=== PATIENT | female | born 1960 | race Caucasian/White ===

== ENCOUNTER → 2020-01-20 10:17 | Outpatient (CLI) | payer BC, SELFPAY ==
[2020-01-20 10:54] LABS: Add Manual Diff / Slide Review NO; Basophils Absolute Auto 0 /uL (0-100); Basophils Percent Auto 0.4 % (0-2); Eosinophils Absolute Auto 0 /uL (0-450); Eosinophils Percent Auto 0.7 % (2-4); Hematocrit 43.9 % (36-46); Hemoglobin 14.7 g/dL (12.0-16.0); Lymphocytes Absolute Auto 1000 /uL (1100-4500); Lymphocytes Percent Auto 33.5 % (25-40); Mean Corpuscular HGB Conc 33.5 % (30-36); Mean Corpuscular Hemoglobin 31.8 PG (26-34); Mean Corpuscular Volume 94.7 fL (80-100); Monocytes Absolute Auto 200 /uL (0-900); Monocytes Percent Auto 6.3 % (3-14); Neutrophils Absolute Auto 1800 /uL (1500-7000); Neutrophils Percent Auto 59.1 % (50-75); Platelet Count 174 X10^3/uL (150-400); Red Blood Cell Count 4.63 X10^6/uL (4.0-5.2); Red Cell Distribution Width 14.1 % (11.6-14.8)
[2020-01-20 11:31] LABS: Alanine Aminotransferase 29 IU/L (<35); Albumin 4.3 g/dL (3.5-5.0); Albumin Globulin Ratio 1.7 (1.0-2.8); Alkaline Phosphatase 106 U/L (38-126); Aspartate Aminotransferase 34 IU/L (14-36); BUN Creatinine Ratio 17.5 (6-22); Bilirubin Total 1.1 mg/dL (0.2-1.3); Blood Urea Nitrogen 14 mg/dL (7-17); Calcium 9.4 mg/dL (8.4-10.2); Carbon Dioxide 31 mmol/L (22-32); Chloride 101 mmol/L (98-107); Cholesterol 185 mg/dL (140-199); Estimated Glomerular Filt Rate > 60.0 mL/min (>60); Globulin 2.5 g/dL (1.7-4.1); Glucose 78 mg/dL (70-100); HDL Cholesterol 100 mg/dL (40-60); HEMOLYSIS < 15 (0-50); LDL Cholesterol Calculated 73 mg/dL (<100); Potassium 4.3 mmol/L (3.4-5.1); Sodium 136 mmol/L (137-145); Total Protein 6.8 g/dL (6.3-8.2); Triglycerides 61 mg/dL (35-150)
[2020-01-20 11:48] LABS: Free T3, Triiodothyronine Free 5.93 pg/mL (2.77-5.27)
[2020-01-21 06:36] LABS: Thyroid Peroxidase Antibodies 19 IU/mL (0-34)
== END ==
PROVIDERS: PCP Registered Nurse; Referring Provider Registered Nurse; Visit Provider Registered Nurse
DX: E06.3 Autoimmune thyroiditis (principal); Z86.2 Personal history of diseases of the blood and blood-forming organs and certain disorders involving the immune mechanism; Z82.49 Family history of ischemic heart disease and other diseases of the circulatory system
CPT/HCPCS: 36415; 80053; 80061; 84443; 84481; 85025; 86376

== ENCOUNTER → 2020-03-12 09:09 | Outpatient (CLI) | payer BC, SELFPAY ==
--- NOTE | 2020-03-12 09:10 | DI.MG.S_ITS ---
BILATERAL DIGITAL SCREENING MAMMOGRAM 3D/2D WITH CAD: 03/12/2020 CLINICAL: Routine screening. Family history of breast cancer. Comparison is made to exams dated: 02/26/2019 mammogram, 02/19/2018 mammogram, and 02/06/2017 mammogram - [facility]. There are scattered fibroglandular elements in both breasts. Current study was also evaluated with a Computer Aided Detection (CAD) system. There are benign post operative findings in the right breast. No significant masses, calcifications, or other findings are seen in either breast. There has been no significant interval change. IMPRESSION: BENIGN There is no mammographic evidence of malignancy. A 1 year screening mammogram is recommended. This exam was interpreted at Station ID: [id number]. NOTE: For mammograms, a report in lay terms will be sent to the patient. Approximately 15% of breast malignancies will not be visualized mammographically. In the management of a palpable breast mass, a negative mammogram must not discourage biopsy of a clinically suspicious lesion. Electronically Signed By: Marvin parra/malu:03/14/2020 07:29:27 letter sent: Normal Exam ACR BI-RADS Category 2: Benign Finding(s) 3342F
== END ==
PROVIDERS: PCP Registered Nurse; Referring Provider Registered Nurse; Visit Provider Registered Nurse
DX: Z12.31 Encounter for screening mammogram for malignant neoplasm of breast (principal); Z80.3 Family history of malignant neoplasm of breast
CPT/HCPCS: 77063; 77067

== ENCOUNTER → 2020-04-15 16:03 | Outpatient (CLI) | payer BC, SELFPAY ==
[2020-04-15 17:44] LABS: Free T3, Triiodothyronine Free 2.99 pg/mL (2.77-5.27)
[2020-04-15 17:58] LABS: TSH w/ Reflex to FT4 0.59 uIU/mL (0.47-4.68)
[2020-04-17 07:10] LABS: Thyroid Peroxidase Antibodies 25 IU/mL (0-34)
== END ==
PROVIDERS: PCP Registered Nurse; Referring Provider Registered Nurse; Visit Provider Registered Nurse
DX: E06.3 Autoimmune thyroiditis (principal)
CPT/HCPCS: 36415; 84443; 84481; 86376

== ENCOUNTER → 2020-04-19 11:56 | Outpatient (CLI) | payer BC, SELFPAY ==
[2020-04-19 12:34] LABS: T4 Total Thyroxine 6.39 ug/dL (5.5-11.0)
== END ==
PROVIDERS: PCP Registered Nurse; Visit Provider Registered Nurse
DX: E03.9 Hypothyroidism, unspecified (principal)
CPT/HCPCS: 84436

== ENCOUNTER 2020-05-07 21:31 | Emergency (ER) | payer BC, SELFPAY ==
[2020-05-07 21:38] VITALS: BP 179/85; PULSE 58; RESP 18; TEMP 36.6; O2SAT 100; BMI 21.2
--- NOTE | 2020-05-07 22:46 | PC.NURSE ---
Pt reports pain increased over the day. Cannot remember a specific injury occurring. Unable to sleep due to the pain. Reports similar episodes in the past, but they have always subsided with rest.
--- NOTE | 2020-05-07 23:17 | ED_ITS ---
HPI - Back Pain/Injury General Chief Complaint: Back Pain/Injury Stated Complaint: lower back pain Time Seen by Provider: 05/07/20 22:28 Source: patient Mode of arrival: Ambulatory Limitations: no limitations History of Present Illness HPI Narrative: Patient is a 59-year-old female here for evaluation of bilateral with left being greater than right lower back pain. She states that soon after she woke up this morning she started having pain in her left lower back that has worsened as the day went on. She states that it is pain on the left side that is radiating to the right. No loss of bowel or bladder. No urinary symptoms. No constipation diarrhea. No vaginal bleeding. States she has had back pain like this in the past but has only lasted a few hours and then went away. States that today's back pain is worsened has been. No fevers. No recent travel. Has not tried anything for symptoms prior to arrival. Related Data Home Medications Medication Instructions Recorded Confirmed metoprolol succinate 25 mg 25 mg PO DAILY tab 04/20/20 04/29/20 tablet,extended release 24 hr Previous Rx's Medication Instructions Recorded thyroid (pork) 60 mg tablet 60 mg PO DAILY #30 tab 04/18/20 cyclobenzaprine 10 mg PO TID PRN #10 tab 05/07/20 tramadol [Ultram] 50 mg PO Q6H PRN #10 tab 05/07/20 Allergies Allergy/AdvReac Type Severity Reaction Status Date / Time losartan Allergy numbness Verified 05/07/20 21:38 and tingling of entire body Review of Systems Constitutional Constitutional: Denies chills, Denies fatigue, Denies headache(s) and Denies weakness ENT Ears, Nose, Mouth, and Throat: Denies vertigo, Denies dizziness and Denies headache(s) Cardiovascular Cardiovascular: Denies chest pain and Denies dyspnea Respiratory Respiratory: Denies dyspnea Gastrointestinal Gastrointestinal: Denies abdominal pain, Denies nausea and Denies vomiting Genitourinary Genitourinary: Denies dysuria, Denies urinary hesitancy, Denies urinary incontinence and Denies urinary urgency Genitourinary: Denies dysuria, Denies urinary incontinence, Denies urinary hesitancy and Denies urinary urgency Musculoskeletal Musculoskeletal: Denies arthralgias, Reports back pain, Denies myalgias and Denies tingling Integumentary/Breasts Skin/Breast: Denies lesions and Denies rash Neurologic Neurologic: Denies vertigo, Denies dizziness, Denies headache(s), Denies tingling and Denies weakness Endocrine Endocrine: Denies fatigue Hematologic/Lymphatic Hematologic/Lymphatic: Denies easy bleeding and Denies easy bruising Allergic/Immunologic Allergic/Immunologic: Denies urticaria Patient History Medical History Elevated BP without diagnosis of hypertension (Acute) Family history of heart disease (Acute) Juan Manuel's disease (Chronic) History of anemia (Acute) Hypothyroidism (Chronic ~2018) Rosacea (Chronic ~2018) Surgical History Anesthesia (Resolved) History of breast surgery (Resolved ~2007) Family History Father History of heart attack Social History Smoking Status: Never smoker Smoking Status: Never smoker Substance Use Type: does not use Exam Initial Vital Signs Initial Vital Signs: Vital Signs Temperature 97.9 F 05/07/20 21:38 Pulse Rate 58 L 05/07/20 21:38 Respiratory Rate 18 05/07/20 21:38 Blood Pressure 179/85 H 05/07/20 21:38 Pulse Oximetry 100 05/07/20 21:38 Const General: cooperative, healthy appearing, comfortable and well developed Limitations: mental status not altered HENMT Head: normal to inspection and normocephalic Resp Effort & Inspection: normal respiratory effort Cardio Rate: regular rate Back/Spine/Pelvis Thoracic/Lumbar Spine: No thoracic spinal tenderness and No lumbar spinal tenderness Skin Lesions: no lesions Rashes: no rashes Neuro General: patient alert, patient awake and patient oriented x3 Speech: speech normal Extrem General: capillary refill normal Psych Appearance: grossly normal and well kempt Course Orders Ordered: Discontinued Medications Cyclobenzaprine HCl (Flexeril 10 Mg Prepack) 1 bottle MISC SEEINSTR ONE Stop: 05/07/20 23:19 Last Admin: 05/07/20 23:27 Dose: 1 bottle Documented by: THANG Ketorolac Tromethamine (Toradol) 30 mg IM NOW ONE Stop: 05/07/20 23:18 Last Admin: 05/07/20 23:26 Dose: 30 mg Documented by: THANG Morphine Sulfate (Morphine) 4 mg IM NOW ONE Stop: 05/07/20 23:18 Last Admin: 05/07/20 23:27 Dose: 4 mg Documented by: THANG Tramadol HCl (Ultram 50mg Prepack) 1 bottle MISC SEEINSTR ONE Stop: 05/07/20 23:19 Last Admin: 05/07/20 23:27 Dose: 1 bottle Documented by: THANG Vital Signs Vital signs: Vital Signs - 8 hr 05/07/20 21:38 05/07/20 23:39 Temperature 97.9 F Pulse Rate 58 L 60 Respiratory Rate 18 17 Blood Pressure 179/85 H 187/94 H Pulse Oximetry 100 97 MDM - Back Pain/Injury MDM Narrative Medical decision making narrative: Patient without any specific trauma. States that lying in bed she does not have any tenderness to palpation is when she starts to move. I have low suspicion for cauda equina. She does not have any belly pain. Low suspicion for AAA. Low suspicion for other potential etiologies such is kidney stones and pyelonephritis. Will treat with medicines for now. We can hold on radiologic studies. Patient was given return precautions and follow-up instructions the primary specially if her symptoms do not improve. She expressed understanding and agreement. Discharge Plan Departure Patient Disposition: Home Clinical Impression: Acute low back pain Discharge Date/Time: 05/07/20 23:42 Instructions: DI for Low Back Pain, Exercise May Reduce Risk of Low Back Pain Activity Restrictions/Additional Instructions: I do recommend you contact your primary provider for a follow-up especially if your symptoms are not improving on the medicines from the ER. Return to the emergency department for any new or worsening symptoms. 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
[2020-05-07] MEDS: KETOROLAC 60 MG/2 ML VIAL 30 MG IM (23:26)
[2020-05-07] MEDS: CYCLOBENZAPRINE 10 MG PREPACK 1 BOTTLE MISC (23:27)
[2020-05-07] MEDS: TRAMADOL 50 MG PREPACK 1 BOTTLE MISC (23:27)
[2020-05-07] MEDS: MORPHINE 4 MG/ML INJ IM (23:27)
[2020-05-07 23:39] VITALS: BP 187/94; PULSE 60; RESP 17; O2SAT 97
== END 2020-05-07 23:42 | disposition home or self-care (01) ==
PROVIDERS: Emergency Provider Emergency Medicine; PCP Registered Nurse
DX: M54.5 Low back pain (principal)
CPT/HCPCS: 96372; 99283; J1885; J2270

== ENCOUNTER → 2020-07-13 11:25 | Outpatient (CLI) | payer OTHER, SELFPAY ==
[2020-07-13 12:09] LABS: Hemoglobin A1C% w Est Avg Glu 5.3 % (4.0-6.0)
[2020-07-13 12:25] LABS: Alanine Aminotransferase 21 IU/L (<35); Albumin 4.2 g/dL (3.5-5.0); Albumin Globulin Ratio 1.7 (1.0-2.8); Alkaline Phosphatase 98 U/L (38-126); Aspartate Aminotransferase 29 IU/L (14-36); BUN Creatinine Ratio 16.7 (6-22); Bilirubin Total 0.6 mg/dL (0.2-1.3); Blood Urea Nitrogen 13 mg/dL (7-17); Calcium 8.7 mg/dL (8.4-10.2); Carbon Dioxide 30 mmol/L (22-32); Chloride 101 mmol/L (98-107); Estimated Glomerular Filt Rate > 60.0 mL/min (>60); Globulin 2.5 g/dL (1.7-4.1); Glucose 88 mg/dL (70-100); HEMOLYSIS < 15 (0-50); Potassium 4.3 mmol/L (3.4-5.1); Sodium 134 mmol/L (137-145); Total Protein 6.7 g/dL (6.3-8.2)
[2020-07-13 13:09] LABS: Vitamin B12 934 pg/mL (239-931)
[2020-07-14 21:26] LABS: Deamidated Gliadin Ab IgA 7 units (0-19); Deamidated Gliadin Ab IgG 3 units (0-19); Immunoglobulin A,Qn 161 mg/dL (87-352); t-Transglutaminase IgA <2 U/mL (0-3)
[2020-07-15 09:36] LABS: Vitamin B6 27.5 ug/L (2.0-32.8)
[2020-07-15 13:09] LABS: Albumin 3.8 g/dL (2.9-4.4); Alpha 1 Globulin 0.2 g/dL (0.0-0.4); Alpha 2 Globulin 0.7 g/dL (0.4-1.0); Gamma Globulin 0.8 g/dL (0.4-1.8); Protein, Total 6.5 g/dL (6.0-8.5)
[2020-07-15 22:36] LABS: Methylmalonic Acid,Serum 100 nmol/L (0-378)
== END ==
PROVIDERS: PCP Registered Nurse; Referring Provider Psychiatry & Neurology Neuromuscular Medicine; Visit Provider Psychiatry & Neurology Neuromuscular Medicine
DX: R20.0 Anesthesia of skin (principal); R20.2 Paresthesia of skin; I10 Essential (primary) hypertension
CPT/HCPCS: 36415; 80053; 82607; 82784; 83036; 83516; 83921; 84155; 84165; 84207

== ENCOUNTER → 2020-07-19 07:16 | Outpatient (CLI) | payer OTHER, SELFPAY ==
[2020-07-19 08:57] LABS: Free T3, Triiodothyronine Free 3.06 pg/mL (2.77-5.27)
[2020-07-19 09:12] LABS: Thyroid Stimulating Hormone 2.54 uIU/mL (0.47-4.68)
== END ==
PROVIDERS: PCP Registered Nurse; Referring Provider Naturopath; Visit Provider Naturopath
DX: E03.9 Hypothyroidism, unspecified (principal)
CPT/HCPCS: 36415; 84443; 84481

== ENCOUNTER → 2020-10-17 09:46 | Outpatient (CLI) | payer OTHER, SELFPAY ==
[2020-10-17 11:13] LABS: Alanine Aminotransferase 23 IU/L (<35); Albumin 3.7 g/dL (3.5-5.0); Albumin Globulin Ratio 1.4 (1.0-2.8); Alkaline Phosphatase 82 U/L (38-126); Aspartate Aminotransferase 34 IU/L (14-36); BUN Creatinine Ratio 15.9 (6-22); Bilirubin Total 0.3 mg/dL (0.2-1.3); Blood Urea Nitrogen 13 mg/dL (7-17); Calcium 8.7 mg/dL (8.4-10.2); Carbon Dioxide 27 mmol/L (22-32); Chloride 106 mmol/L (98-107); Cholesterol 149 mg/dL (140-199); Estimated Glomerular Filt Rate > 60.0 mL/min (>60); Globulin 2.6 g/dL (1.7-4.1); Glucose 86 mg/dL (70-100); HDL Cholesterol 59 mg/dL (40-60); HEMOLYSIS < 15 (0-50); LDL Cholesterol Calculated 77 mg/dL (<100); Potassium 4.3 mmol/L (3.4-5.1); Sodium 138 mmol/L (137-145); Total Protein 6.3 g/dL (6.3-8.2); Triglycerides 65 mg/dL (35-150)
== END ==
PROVIDERS: PCP Registered Nurse; Referring Provider Registered Nurse; Visit Provider Registered Nurse
DX: I10 Essential (primary) hypertension (principal); Z82.49 Family history of ischemic heart disease and other diseases of the circulatory system
CPT/HCPCS: 36415; 80053; 80061

== ENCOUNTER → 2020-10-24 12:42 | Outpatient (CLI) | payer OTHER, SELFPAY ==
[2020-10-24 13:29] LABS: Add Manual Diff / Slide Review NO; Basophils Absolute Auto 0 /uL (0-100); Basophils Percent Auto 0.8 % (0-2); Eosinophils Absolute Auto 0 /uL (0-450); Hematocrit 35.6 % (36-46); Hemoglobin 11.8 g/dL (12.0-16.0); Lymphocytes Absolute Auto 1000 /uL (1100-4500); Lymphocytes Percent Auto 31.7 % (25-40); Mean Corpuscular HGB Conc 33.1 % (30-36); Mean Corpuscular Hemoglobin 29.9 PG (26-34); Mean Corpuscular Volume 90.3 fL (80-100); Monocytes Absolute Auto 200 /uL (0-900); Monocytes Percent Auto 5.6 % (3-14); Neutrophils Absolute Auto 2000 /uL (1500-7000); Neutrophils Percent Auto 60.9 % (50-75); Platelet Count 190 X10^3/uL (150-400); Red Blood Cell Count 3.94 X10^6/uL (4.0-5.2); Red Cell Distribution Width 16.5 % (11.6-14.8); White Blood Cell Count 3.2 X10^3/uL (4.5-11.0)
[2020-10-24 14:17] LABS: Magnesium 2.3 mg/dL (1.6-2.3)
[2020-10-24 14:32] LABS: Free T3, Triiodothyronine Free 2.83 pg/mL (2.77-5.27)
[2020-10-24 14:44] LABS: Cortisol Random 7.41 ug/dL
[2020-10-24 14:46] LABS: Thyroid Stimulating Hormone 1.68 uIU/mL (0.47-4.68)
[2020-10-24 14:49] LABS: Ferritin 5 ng/mL (11-264)
[2020-10-24 15:19] LABS: Folate > 20.0 ng/mL (2.76-20.0); Vitamin B12 859 pg/mL (239-931)
[2020-10-25 06:15] LABS: Thyroid Peroxidase Antibodies 44 IU/mL (0-34)
== END ==
PROVIDERS: PCP Registered Nurse; Referring Provider Naturopath; Visit Provider Naturopath
DX: E03.9 Hypothyroidism, unspecified (principal); R53.83 Other fatigue; D64.9 Anemia, unspecified
CPT/HCPCS: 36415; 82533; 82542; 82607; 82627; 82728; 82746; 83735; 84439; 84443; 84481; 85025; 86376

== ENCOUNTER → 2020-11-04 11:28 | Outpatient (CLI) | payer OTHER, SELFPAY ==
[2020-11-04 13:16] LABS: Add Manual Diff / Slide Review NO; Basophils Absolute Auto 0 /uL (0-100); Basophils Percent Auto 0.5 % (0-2); Eosinophils Absolute Auto 0 /uL (0-450); Eosinophils Percent Auto 0.8 % (2-4); Hematocrit 35.5 % (36-46); Hemoglobin 11.7 g/dL (12.0-16.0); Lymphocytes Absolute Auto 900 /uL (1100-4500); Lymphocytes Percent Auto 25.9 % (25-40); Mean Corpuscular HGB Conc 32.9 % (30-36); Mean Corpuscular Hemoglobin 29.4 PG (26-34); Mean Corpuscular Volume 89.5 fL (80-100); Monocytes Absolute Auto 200 /uL (0-900); Monocytes Percent Auto 6.8 % (3-14); Neutrophils Absolute Auto 2300 /uL (1500-7000); Platelet Count 207 X10^3/uL (150-400); Red Blood Cell Count 3.97 X10^6/uL (4.0-5.2); White Blood Cell Count 3.5 X10^3/uL (4.5-11.0)
[2020-11-04 13:42] LABS: Alanine Aminotransferase 21 IU/L (<35); Albumin 4.1 g/dL (3.5-5.0); Albumin Globulin Ratio 1.7 (1.0-2.8); Alkaline Phosphatase 96 U/L (38-126); Aspartate Aminotransferase 31 IU/L (14-36); BUN Creatinine Ratio 16.9 (6-22); Bilirubin Total 0.5 mg/dL (0.2-1.3); Blood Urea Nitrogen 14 mg/dL (7-17); Carbon Dioxide 26 mmol/L (22-32); Chloride 103 mmol/L (98-107); Estimated Glomerular Filt Rate > 60.0 mL/min (>60); Globulin 2.4 g/dL (1.7-4.1); Glucose 93 mg/dL (70-100); HEMOLYSIS < 15 (0-50); Lipase 110 U/L (23-300); Potassium 4.4 mmol/L (3.4-5.1); Sodium 137 mmol/L (137-145); Total Protein 6.5 g/dL (6.3-8.2)
== END ==
PROVIDERS: PCP Registered Nurse; Referring Provider Physician Assistant; Visit Provider Physician Assistant
DX: N34.3 Urethral syndrome, unspecified (principal); R10.32 Left lower quadrant pain
CPT/HCPCS: 36415; 80053; 83690; 85025; 87086

== ENCOUNTER → 2020-11-04 12:41 | Outpatient (CLI) | payer OTHER, SELFPAY ==
--- NOTE | 2020-11-04 13:51 | DI.CT.S_ITS ---
PROCEDURE: CT ABDOMEN PELVIS W CON INDICATIONS: LLQ pain TECHNIQUE: After the administration of intravenous contrast, 5 mm thick sections acquired from the diaphragm to the symphysis. 5 mm coronal and sagittal reformats were acquired. For radiation dose reduction, the following was used: automated exposure control, adjustment of mA and/or kV according to patient size. COMPARISON: None. FINDINGS: Image quality: Excellent. ABDOMEN: Lung bases: Lung bases are clear. Heart size is normal. Solid organs: Liver is normal in size and enhancement. 1.4 centimeter cyst in the left lobe of the liver. Gallbladder is contracted. Common bile duct is prominent measuring up to 9 millimeters. Pancreas enhances normally. Spleen is normal in size and enhancement. No adrenal nodules. Kidneys demonstrate normal size and enhancement, without hydronephrosis. Peritoneum and bowel: Bowel loops demonstrate normal wall thickness and caliber. Moderate amount of stool noted throughout the colon. No free air. Trace free fluid noted in the cul-de-sac of the pelvis which is within physiologic limits. The appendix is normal. Nodes and vessels: No retroperitoneal or mesenteric adenopathy by size criteria. Aorta and inferior vena cava are normal in size. Miscellaneous: No ventral hernias. PELVIS: Genitourinary: Bladder wall thickness is normal. Miscellaneous: No inguinal hernias or adenopathy. Bones: No suspicious bony lesions. No vertebral body compression fractures. Spine degenerative disc disease and facet arthropathy. IMPRESSION: 1. Mild prominence of the common bile duct. Recommend correlation with laboratory data to exclude biliary obstruction. 2. No free air. Trace free fluid in the pelvis is within physiologic limits. 3. No dilated loops of bowel. 4. The appendix is normal. 5. Moderate fecal loading throughout the colon. Dictated by: Frieda Baeza MD, PhD on 11/04/2020 at 14:06 Approved by: Frieda Baeza MD, PhD on 11/04/2020 at 14:14
== END ==
PROVIDERS: PCP Registered Nurse; Referring Provider Physician Assistant; Visit Provider Physician Assistant
DX: R10.32 Left lower quadrant pain (principal); N34.3 Urethral syndrome, unspecified
CPT/HCPCS: 36415; 74177; 80053; 83690; 85025; 87086

== ENCOUNTER → 2020-11-25 13:08 | Outpatient (CLI) | payer OTHER, SELFPAY ==
[2020-11-30 15:43] LABS: H. Pylori Antigen Stool Negative (Negative)
== END ==
PROVIDERS: PCP Registered Nurse; Referring Provider Naturopath; Visit Provider Naturopath
DX: R19.7 Diarrhea, unspecified (principal)
CPT/HCPCS: 87102; 87205; 87338

== ENCOUNTER → 2021-01-05 17:20 | Outpatient (CLI) | payer OTHER, SELFPAY ==
[2021-01-05 17:46] LABS: Add Manual Diff / Slide Review NO; Basophils Absolute Auto 0 /uL (0-100); Basophils Percent Auto 0.5 % (0-2); Eosinophils Absolute Auto 0 /uL (0-450); Eosinophils Percent Auto 0.3 % (2-4); Hematocrit 43.2 % (36-46); Hemoglobin 14.5 g/dL (12.0-16.0); Lymphocytes Absolute Auto 1300 /uL (1100-4500); Lymphocytes Percent Auto 23.4 % (25-40); Mean Corpuscular HGB Conc 33.5 % (30-36); Mean Corpuscular Hemoglobin 30.5 PG (26-34); Monocytes Absolute Auto 300 /uL (0-900); Neutrophils Absolute Auto 3900 /uL (1500-7000); Neutrophils Percent Auto 70.8 % (50-75); Platelet Count 168 X10^3/uL (150-400); Red Blood Cell Count 4.75 X10^6/uL (4.0-5.2); Red Cell Distribution Width 16.4 % (11.6-14.8); White Blood Cell Count 5.6 X10^3/uL (4.5-11.0)
[2021-01-05 18:21] LABS: Free T3, Triiodothyronine Free 3.88 pg/mL (2.77-5.27); Free T4, Direct Thyroxine 1.23 ng/dL (0.78-2.19)
[2021-01-05 18:35] LABS: Thyroid Stimulating Hormone 0.269 uIU/mL (0.47-4.68)
[2021-01-05 18:38] LABS: Ferritin 12 ng/mL (11-264)
[2021-01-05 19:08] LABS: Folate > 20.0 ng/mL (2.76-20.0); Vitamin B12 909 pg/mL (239-931)
[2021-01-06 07:09] LABS: Thyroid Peroxidase Antibodies 45 IU/mL (0-34)
[2021-01-07 04:09] LABS: Homocysteine 8.7 umol/L (0.0-14.5)
[2021-01-07 08:18] LABS: Fibrinogen Activity 275 mg/dL (193-507)
[2021-01-11 05:37] LABS: Nicotinamide 9.8 ng/mL (5.2-72.1); Nicotinic Acid <5.0 ng/mL (0.0-5.0)
== END ==
PROVIDERS: PCP Registered Nurse; Referring Provider Naturopath; Visit Provider Naturopath
DX: E63.9 Nutritional deficiency, unspecified (principal); D64.9 Anemia, unspecified; E03.9 Hypothyroidism, unspecified; R53.83 Other fatigue
CPT/HCPCS: 36415; 82607; 82728; 82746; 83090; 84207; 84439; 84443; 84481; 84591; 85025; 85384; 86376

== ENCOUNTER → 2021-02-23 15:57 | Outpatient (CLI) | payer OTHER, SELFPAY ==
[2021-02-23 17:36] LABS: Add Manual Diff / Slide Review NO; Basophils Absolute Auto 0 /uL (0-100); Basophils Percent Auto 0.6 % (0-2); Eosinophils Absolute Auto 0 /uL (0-450); Eosinophils Percent Auto 1.2 % (2-4); Hematocrit 39.6 % (36-46); Hemoglobin 13.2 g/dL (12.0-16.0); Lymphocytes Absolute Auto 1200 /uL (1100-4500); Mean Corpuscular HGB Conc 33.4 % (30-36); Mean Corpuscular Hemoglobin 30.6 PG (26-34); Mean Corpuscular Volume 91.7 fL (80-100); Monocytes Absolute Auto 300 /uL (0-900); Monocytes Percent Auto 6.7 % (3-14); Neutrophils Absolute Auto 2300 /uL (1500-7000); Neutrophils Percent Auto 60.5 % (50-75); Platelet Count 148 X10^3/uL (150-400); Red Blood Cell Count 4.31 X10^6/uL (4.0-5.2); Red Cell Distribution Width 16.2 % (11.6-14.8); White Blood Cell Count 3.9 X10^3/uL (4.5-11.0)
[2021-02-23 17:45] LABS: HEMOLYSIS < 15 (0-50); Iron 70 ug/dL (37-170)
[2021-02-23 17:56] LABS: Percent Iron Saturation 19 % (15-50); Total Iron Binding Capacity 362 ug/dL (265-497); Transferrin 295 mg/dL (206-381)
[2021-02-23 18:03] LABS: Free T4, Direct Thyroxine 1.11 ng/dL (0.78-2.19)
[2021-02-23 18:17] LABS: Thyroid Stimulating Hormone 0.314 uIU/mL (0.47-4.68)
== END ==
PROVIDERS: PCP Family Medicine; Referring Provider Family Medicine; Visit Provider Family Medicine
DX: Z86.2 Personal history of diseases of the blood and blood-forming organs and certain disorders involving the immune mechanism (principal); E03.9 Hypothyroidism, unspecified; R20.2 Paresthesia of skin; I10 Essential (primary) hypertension; E06.3 Autoimmune thyroiditis
CPT/HCPCS: 36415; 83540; 83550; 84439; 84443; 84481; 85025

== ENCOUNTER → 2021-03-16 14:42 | Outpatient (CLI) | payer OTHER, SELFPAY ==
[2021-03-17 08:09] LABS: EBV Early Antigen AB,IgG 29.8 U/mL (0.0-8.9)
[2021-03-22 20:43] LABS: 18 kD IgG Band Absent (.); 23 kD IgG Band Absent (.); 28 kD IgG Band Absent (.); 30 kD IgG Band Absent (.); 39 kD IgG Band Absent (.); 41 kD IgG Bands Absent (.); 45 kD IgG Band Absent (.); 58 kD IgG Band Absent (.); 66 kD IgG Band Absent (.); IgG P93 AB Absent (.); IgM P23 AB Absent (.); IgM P39 AB Absent (.); IgM P41 AB Absent (.); Lyme IgG Line Blot Interpretat Negative (.); Lyme IgM Line Blot Interpretat Negative (.)
== END ==
PROVIDERS: PCP Family Medicine; Referring Provider Naturopath; Visit Provider Naturopath
DX: G60.9 Hereditary and idiopathic neuropathy, unspecified (principal); R53.82 Chronic fatigue, unspecified; D89.9 Disorder involving the immune mechanism, unspecified
CPT/HCPCS: 36415; 86617; 86644; 86645; 86663; 86665

== ENCOUNTER → 2021-05-09 15:01 | Outpatient (CLI) | payer OTHER, SELFPAY ==
[2021-05-09 15:24] LABS: Add Manual Diff / Slide Review NO; Basophils Absolute Auto 0 /uL (0-100); Basophils Percent Auto 0.6 % (0-2); Eosinophils Absolute Auto 0 /uL (0-450); Eosinophils Percent Auto 0.3 % (2-4); Hematocrit 41.2 % (36-46); Hemoglobin 13.8 g/dL (12.0-16.0); Lymphocytes Absolute Auto 600 /uL (1100-4500); Lymphocytes Percent Auto 18.6 % (25-40); Mean Corpuscular HGB Conc 33.5 % (30-36); Mean Corpuscular Hemoglobin 32.4 PG (26-34); Mean Corpuscular Volume 96.8 fL (80-100); Monocytes Absolute Auto 200 /uL (0-900); Monocytes Percent Auto 5.6 % (3-14); Neutrophils Absolute Auto 2600 /uL (1500-7000); Neutrophils Percent Auto 74.9 % (50-75); Platelet Count 175 X10^3/uL (150-400); Red Blood Cell Count 4.25 X10^6/uL (4.0-5.2); Red Cell Distribution Width 17.4 % (11.6-14.8); White Blood Cell Count 3.4 X10^3/uL (4.5-11.0)
[2021-05-09 16:42] LABS: HEMOLYSIS < 15 (0-50); Iron 92 ug/dL (37-170)
[2021-05-09 16:53] LABS: Free T3, Triiodothyronine Free 3.83 pg/mL (2.77-5.27); Free T4, Direct Thyroxine 0.96 ng/dL (0.78-2.19)
[2021-05-09 16:54] LABS: Percent Iron Saturation 29 % (15-50); Total Iron Binding Capacity 320 ug/dL (265-497); Transferrin 252 mg/dL (206-381)
[2021-05-09 17:03] LABS: Ferritin 18 ng/mL (11-264)
[2021-05-09 17:07] LABS: Thyroid Stimulating Hormone 1.48 uIU/mL (0.47-4.68)
[2021-05-11 14:01] LABS: ANA Screen, IFA Negative (.)
== END ==
PROVIDERS: PCP Family Medicine; Referring Provider Naturopath; Visit Provider Naturopath
DX: D64.9 Anemia, unspecified (principal); R20.2 Paresthesia of skin; R53.83 Other fatigue; E03.9 Hypothyroidism, unspecified
CPT/HCPCS: 36415; 82728; 83540; 83550; 84439; 84443; 84481; 85025; 86038

== ENCOUNTER → 2021-05-17 14:33 | Outpatient (CLI) | payer OTHER, SELFPAY ==
[2021-05-17 17:03] LABS: Add Manual Diff / Slide Review NO; Basophils Absolute Auto 0 /uL (0-100); Basophils Percent Auto 0.8 % (0-2); Eosinophils Absolute Auto 0 /uL (0-450); Eosinophils Percent Auto 0.6 % (2-4); Hematocrit 41.8 % (36-46); Lymphocytes Absolute Auto 900 /uL (1100-4500); Lymphocytes Percent Auto 23.2 % (25-40); Mean Corpuscular HGB Conc 33.5 % (30-36); Mean Corpuscular Hemoglobin 32.9 PG (26-34); Mean Corpuscular Volume 98.4 fL (80-100); Monocytes Absolute Auto 200 /uL (0-900); Neutrophils Absolute Auto 2800 /uL (1500-7000); Neutrophils Percent Auto 69.4 % (50-75); Platelet Count 191 X10^3/uL (150-400); Red Blood Cell Count 4.25 X10^6/uL (4.0-5.2)
[2021-05-17 17:36] LABS: Alanine Aminotransferase 17 IU/L (<35); Albumin 4.5 g/dL (3.5-5.0); Albumin Globulin Ratio 1.7 (1.0-2.8); Alkaline Phosphatase 104 U/L (38-126); Aspartate Aminotransferase 26 IU/L (14-36); BUN Creatinine Ratio 19.3 (6-22); Bilirubin Total 0.5 mg/dL (0.2-1.3); Blood Urea Nitrogen 17 mg/dL (7-17); C-Reactive Protein Quant < 0.5 mg/dL (<1.0); Calcium 9.2 mg/dL (8.4-10.2); Carbon Dioxide 31 mmol/L (22-32); Chloride 100 mmol/L (98-107); Estimated Glomerular Filt Rate > 60.0 mL/min (>60); Globulin 2.6 g/dL (1.7-4.1); Glucose 97 mg/dL (70-100); HEMOLYSIS 20 (0-50); Potassium 4.7 mmol/L (3.4-5.1); Sodium 137 mmol/L (137-145); Total Protein 7.1 g/dL (6.3-8.2)
[2021-05-17 17:38] LABS: Rheumatoid Factor < 8.6 IU/mL (<12.0)
[2021-05-17 19:51] LABS: Erythrocyte Sedimentation Rate 3 MM/HR (0-20)
[2021-05-18 04:50] LABS: IGA 147 mg/dL (87-352); IGG 687 mg/dL (586-1602); IGM 72 mg/dL (26-217)
[2021-05-21 18:26] LABS: CCP Antibodies IgG/IgA 6 units (0-19)
== END ==
PROVIDERS: PCP Family Medicine; Referring Provider Naturopath; Visit Provider Naturopath
DX: M25.60 Stiffness of unspecified joint, not elsewhere classified (principal); D72.810 Lymphocytopenia; R53.83 Other fatigue
CPT/HCPCS: 36415; 80053; 82784; 85025; 85651; 86140; 86200; 86430

== ENCOUNTER → 2021-07-10 14:57 | Outpatient (CLI) | payer OTHER, SELFPAY ==
[2021-07-10 16:52] LABS: Free T3, Triiodothyronine Free 3.12 pg/mL (2.77-5.27); Free T4, Direct Thyroxine 0.97 ng/dL (0.78-2.19)
[2021-07-10 17:05] LABS: Thyroid Stimulating Hormone 1.88 uIU/mL (0.47-4.68)
== END ==
PROVIDERS: PCP Family Medicine; Referring Provider Naturopath; Visit Provider Naturopath
DX: E03.9 Hypothyroidism, unspecified (principal)
CPT/HCPCS: 36415; 84439; 84443; 84481

== ENCOUNTER → 2021-08-05 12:47 | Outpatient (CLI) | payer OTHER, SELFPAY ==
[2021-08-05 13:38] LABS: Add Manual Diff / Slide Review NO; Basophils Absolute Auto 0 /uL (0-100); Basophils Percent Auto 0.6 % (0-2); Eosinophils Absolute Auto 0 /uL (0-450); Eosinophils Percent Auto 0.3 % (2-4); Hematocrit 41.2 % (36-46); Hemoglobin 13.9 g/dL (12.0-16.0); Lymphocytes Absolute Auto 900 /uL (1100-4500); Lymphocytes Percent Auto 29.6 % (25-40); Mean Corpuscular HGB Conc 33.7 % (30-36); Mean Corpuscular Hemoglobin 34.8 PG (26-34); Mean Corpuscular Volume 103.5 fL (80-100); Monocytes Absolute Auto 200 /uL (0-900); Monocytes Percent Auto 6.5 % (3-14); Neutrophils Absolute Auto 1900 /uL (1500-7000); Platelet Count 183 X10^3/uL (150-400); Red Blood Cell Count 3.98 X10^6/uL (4.0-5.2); Red Cell Distribution Width 13.6 % (11.6-14.8)
[2021-08-05 15:02] LABS: Ferritin 22 ng/mL (11-264)
[2021-08-05 15:13] LABS: Triiodothryronine T3 Uptake 33.3 % (23.5-40.5)
[2021-08-05 17:49] LABS: Vitamin D 25 Hydroxy (D3) 43.7 ng/mL (30.0-100.0)
[2021-08-06 08:46] LABS: Thyroid Peroxidase Antibodies 11 IU/mL (0-34)
[2021-08-08 11:08] LABS: Thyrotropin Receptor AB <1.10 IU/L (0.00-1.75)
[2021-08-08 11:15] LABS: Thyroxine Binding Globulin 24 ug/mL (13-39)
[2021-08-08 19:09] LABS: Anti Thyroglobulin Antibody <1.0 IU/mL (0.0-0.9)
[2021-08-12 17:17] LABS: Triiodothyronine T3 Reverse 18.8 ng/dL (9.2-24.1)
[2021-08-17 11:25] LABS: Thyroglobulin Level 6.5 ng/mL (.)
== END ==
PROVIDERS: PCP Family Medicine; Referring Provider Naturopath; Visit Provider Naturopath
DX: E03.9 Hypothyroidism, unspecified (principal); D72.818 Other decreased white blood cell count; R79.9 Abnormal finding of blood chemistry, unspecified; G62.9 Polyneuropathy, unspecified
CPT/HCPCS: 36415; 82306; 82728; 83520; 84432; 84442; 84479; 84482; 85025; 86376; 86800

== ENCOUNTER → 2021-08-07 09:49 | Outpatient (CLI) | payer OTHER, SELFPAY | PROVIDERS: PCP Family Medicine; Referring Provider Naturopath; Visit Provider Naturopath | DX: G62.9 Polyneuropathy, unspecified (principal) | CPT/HCPCS: 82175; 82300; 82570; 83655; 83825 ==

== ENCOUNTER → 2021-09-18 16:19 | Outpatient (CLI) | payer OTHER, SELFPAY ==
[2021-09-18 18:28] LABS: C-Reactive Protein Quant < 0.5 mg/dL (<1.0)
[2021-09-18 19:04] LABS: Erythrocyte Sedimentation Rate 4 MM/HR (0-20)
== END ==
PROVIDERS: PCP Naturopath; Referring Provider Naturopath; Visit Provider Naturopath
DX: G62.9 Polyneuropathy, unspecified (principal)
CPT/HCPCS: 36415; 85651; 86140

== ENCOUNTER → 2021-12-01 14:37 | Outpatient (CLI) | payer OTHER, SELFPAY ==
[2021-12-01 16:35] LABS: HEMOLYSIS < 15 (0-50); Iron 94 ug/dL (37-170)
[2021-12-01 16:40] LABS: Alanine Aminotransferase 20 IU/L (<35); Albumin 4.4 g/dL (3.5-5.0); Albumin Globulin Ratio 1.7 (1.0-2.8); Alkaline Phosphatase 96 U/L (38-126); Aspartate Aminotransferase 26 IU/L (14-36); BUN Creatinine Ratio 12.1 (6-22); Bilirubin Total 0.9 mg/dL (0.2-1.3); Blood Urea Nitrogen 8 mg/dL (7-17); C-Reactive Protein Quant < 0.5 mg/dL (<1.0); Carbon Dioxide 29 mmol/L (22-32); Chloride 100 mmol/L (98-107); Estimated Glomerular Filt Rate > 60 mL/min (>60); Globulin 2.6 g/dL (1.7-4.1); Glucose 91 mg/dL (80-110); HEMOLYSIS < 15 (0-50); Potassium 4.3 mmol/L (3.4-5.1); Sodium 136 mmol/L (137-145)
[2021-12-01 16:47] LABS: Percent Iron Saturation 28 % (15-50); Total Iron Binding Capacity 341 ug/dL (265-497); Transferrin 268 mg/dL (206-381)
[2021-12-01 16:55] LABS: Free T3, Triiodothyronine Free 3.34 pg/mL (2.77-5.27)
[2021-12-01 17:09] LABS: Thyroid Stimulating Hormone 0.819 uIU/mL (0.47-4.68)
[2021-12-01 17:12] LABS: Ferritin 53 ng/mL (11-264)
[2021-12-03 08:13] LABS: Ceruloplasmin 24.7 mg/dL (19.0-39.0)
[2021-12-04 19:43] LABS: EBV Nuclear Antigen Ab IgG 79.1 U/mL (0.0-17.9)
[2021-12-05 17:17] LABS: Vitamin A 45.3 ug/dL (22.0-69.5)
== END ==
PROVIDERS: PCP Naturopath; Referring Provider Naturopath; Visit Provider Naturopath
DX: E03.9 Hypothyroidism, unspecified (principal); G62.9 Polyneuropathy, unspecified; R53.83 Other fatigue; E61.1 Iron deficiency
CPT/HCPCS: 36415; 80053; 82390; 82525; 82728; 83540; 83550; 84439; 84443; 84481; 84590; 86140; 86664

== ENCOUNTER → 2022-02-13 14:31 | Outpatient (CLI) | payer OTHER, SELFPAY ==
[2022-02-13 15:57] LABS: Free T3, Triiodothyronine Free 3.27 pg/mL (2.77-5.27)
[2022-02-13 16:10] LABS: Thyroid Stimulating Hormone 1.21 uIU/mL (0.47-4.68)
[2022-02-13 16:13] LABS: Ferritin 35 ng/mL (11-264)
== END ==
PROVIDERS: PCP Naturopath; Referring Provider Naturopath; Visit Provider Naturopath
DX: Z00.00 Encounter for general adult medical examination without abnormal findings (principal); E55.9 Vitamin D deficiency, unspecified; R53.83 Other fatigue; E03.9 Hypothyroidism, unspecified
CPT/HCPCS: 36415; 82306; 82728; 84439; 84443; 84481

== ENCOUNTER → 2022-02-15 09:20 | Outpatient (CLI) | payer OTHER, SELFPAY ==
--- NOTE | 2022-02-15 | DI.MG.S_ITS ---
BILATERAL DIGITAL SCREENING MAMMOGRAM 3D/2D WITH CAD: 02/15/2022 CLINICAL: Routine screening. Family history of breast cancer. Comparison is made to exams dated: 02/14/2021 mammogram - [facility], 03/12/2020 mammogram - [facility], and 02/26/2019 mammogram - [facility]. There are scattered areas of fibroglandular density in both breasts (category b / 25%-50% glandular tissue). Current study was also evaluated with a Computer Aided Detection (CAD) system. There are benign post operative findings in the right breast. No significant masses, calcifications, or other findings are seen in either breast. There has been no significant interval change. IMPRESSION: BENIGN There is no mammographic evidence of malignancy. A 1 year screening mammogram is recommended. Based on the Tyrer Cuzick model (a risk assessment model) the patient's lifetime risk is 7.5% and her 10 year risk is 3.0%. According to the ACR, ACS, and NCCN guidelines, an annual breast MRI exam along with mammogram is recommended if the patient's lifetime risk is 20% or greater. This exam was interpreted at Station ID: [id number]. NOTE: For mammograms, a report in lay terms will be sent to the patient. Approximately 15% of breast malignancies will not be visualized mammographically. In the management of a palpable breast mass, a negative mammogram must not discourage biopsy of a clinically suspicious lesion. Electronically Signed By: Christy richard/malu:02/15/2022 13:07:09 letter sent: Normal Exam ACR BI-RADS Category 2: Benign Finding(s) 3342F
== END ==
PROVIDERS: PCP Naturopath; Referring Provider Naturopath; Visit Provider Naturopath
DX: Z12.31 Encounter for screening mammogram for malignant neoplasm of breast (principal); Z80.3 Family history of malignant neoplasm of breast; E55.9 Vitamin D deficiency, unspecified; R53.83 Other fatigue; E03.9 Hypothyroidism, unspecified
CPT/HCPCS: 36415; 77063; 77067; 80053; 80061; 85025

== ENCOUNTER → 2022-02-15 09:26 | Outpatient (CLI) | payer OTHER, SELFPAY ==
[2022-02-15 11:19] LABS: Add Manual Diff / Slide Review NO; Basophils Absolute Auto 0 /uL (0-100); Basophils Percent Auto 0.6 % (0-2); Eosinophils Absolute Auto 0 /uL (0-450); Eosinophils Percent Auto 0.6 % (2-4); Hematocrit 42.4 % (36-46); Hemoglobin 14.5 g/dL (12.0-16.0); Lymphocytes Absolute Auto 700 /uL (1100-4500); Mean Corpuscular HGB Conc 34.3 % (30-36); Mean Corpuscular Volume 96.3 fL (80-100); Monocytes Absolute Auto 200 /uL (0-900); Monocytes Percent Auto 6.6 % (3-14); Neutrophils Absolute Auto 1700 /uL (1500-7000); Neutrophils Percent Auto 66.2 % (50-75); Platelet Count 163 X10^3/uL (150-400); Red Cell Distribution Width 13.6 % (11.6-14.8); White Blood Cell Count 2.6 X10^3/uL (4.5-11.0)
[2022-02-15 11:50] LABS: Alanine Aminotransferase 16 IU/L (<35); Albumin 4.2 g/dL (3.5-5.0); Albumin Globulin Ratio 1.9 (1.0-2.8); Alkaline Phosphatase 114 U/L (38-126); Aspartate Aminotransferase 21 IU/L (14-36); BUN Creatinine Ratio 9.5 (6-22); Bilirubin Total 0.8 mg/dL (0.2-1.3); Blood Urea Nitrogen 6 mg/dL (7-17); Calcium 8.6 mg/dL (8.4-10.2); Carbon Dioxide 29 mmol/L (22-32); Chloride 96 mmol/L (98-107); Cholesterol 150 mg/dL (140-199); Estimated Glomerular Filt Rate > 60 mL/min (>60); Globulin 2.2 g/dL (1.7-4.1); Glucose 91 mg/dL (80-110); HDL Cholesterol 69 mg/dL (40-60); HEMOLYSIS < 15 (0-50); LDL Cholesterol Calculated 67 mg/dL (<100); Sodium 132 mmol/L (137-145); Total Protein 6.4 g/dL (6.3-8.2); Triglycerides 70 mg/dL (35-150)
== END ==
PROVIDERS: PCP Naturopath; Referring Provider Naturopath; Visit Provider Naturopath
DX: Z00.00 Encounter for general adult medical examination without abnormal findings (principal); E55.9 Vitamin D deficiency, unspecified; R53.83 Other fatigue; E03.9 Hypothyroidism, unspecified
CPT/HCPCS: 36415; 80053; 80061; 85025

== ENCOUNTER → 2022-04-02 15:50 | Outpatient (CLI) | payer OTHER, SELFPAY ==
[2022-04-02 17:44] LABS: Add Manual Diff / Slide Review NO; Basophils Absolute Auto 0 /uL (0-100); Basophils Percent Auto 0.7 % (0-2); Eosinophils Absolute Auto 0 /uL (0-450); Eosinophils Percent Auto 0.5 % (2-4); Hematocrit 41.7 % (36-46); Hemoglobin 14.3 g/dL (12.0-16.0); Lymphocytes Absolute Auto 700 /uL (1100-4500); Lymphocytes Percent Auto 16.7 % (25-40); Mean Corpuscular HGB Conc 34.2 % (30-36); Mean Corpuscular Hemoglobin 33.1 PG (26-34); Mean Corpuscular Volume 96.9 fL (80-100); Monocytes Absolute Auto 300 /uL (0-900); Monocytes Percent Auto 7.2 % (3-14); Neutrophils Absolute Auto 3100 /uL (1500-7000); Neutrophils Percent Auto 74.9 % (50-75); Platelet Count 163 X10^3/uL (150-400); Red Cell Distribution Width 13.8 % (11.6-14.8); White Blood Cell Count 4.1 X10^3/uL (4.5-11.0)
[2022-04-02 18:01] LABS: Alanine Aminotransferase 15 IU/L (<35); Albumin 4.3 g/dL (3.5-5.0); Albumin Globulin Ratio 1.6 (1.0-2.8); Alkaline Phosphatase 127 U/L (38-126); Aspartate Aminotransferase 23 IU/L (14-36); BUN Creatinine Ratio 17.7 (6-22); Bilirubin Total 0.4 mg/dL (0.2-1.3); Blood Urea Nitrogen 11 mg/dL (7-17); Calcium 8.6 mg/dL (8.4-10.2); Carbon Dioxide 29 mmol/L (22-32); Chloride 95 mmol/L (98-107); Estimated Glomerular Filt Rate > 60 mL/min (>60); Globulin 2.7 g/dL (1.7-4.1); Glucose 93 mg/dL (80-110); HEMOLYSIS < 15 (0-50); Potassium 3.8 mmol/L (3.4-5.1); Sodium 133 mmol/L (137-145)
[2022-04-02 18:22] LABS: Free T3, Triiodothyronine Free 3.86 pg/mL (2.77-5.27); Free T4, Direct Thyroxine 1.04 ng/dL (0.78-2.19)
[2022-04-02 18:35] LABS: Ferritin 29 ng/mL (11-264)
[2022-04-04 14:48] LABS: EBV Ab VCA, IgM <36.0 U/mL (0.0-35.9)
== END ==
PROVIDERS: PCP Naturopath; Referring Provider Naturopath; Visit Provider Naturopath
DX: R53.83 Other fatigue (principal); D72.810 Lymphocytopenia; D72.818 Other decreased white blood cell count; R79.9 Abnormal finding of blood chemistry, unspecified; G62.9 Polyneuropathy, unspecified
CPT/HCPCS: 36415; 80053; 82728; 84439; 84443; 84481; 85025; 86665

== ENCOUNTER 2022-04-27 11:15 | Outpatient (RCR) | payer OTHER, SELFPAY ==
--- NOTE | 2022-04-24 20:51 | PT.OIE ---
Current Diagnoses Cervicalgia (04/24/22) Pain in unspecified lower leg (04/24/22) Pain in unspecified foot (04/24/22) Past Medical History (Last Updated 02/28/21 @ 16:30 by Mario Lima DO) Elevated BP without diagnosis of hypertension Family history of heart disease Juan Manuel's disease History of anemia Hypothyroidism (~2018) Rib pain on left side Rosacea (~2018) Segmental and somatic dysfunction of rib cage Thoracic region somatic dysfunction Past Surgical History (Last Reviewed 02/13/21 @ 07:39 by Mario Lima DO) Anesthesia History of breast surgery (~2007) Visit Care Team Role Provider Type Danielle Becerra ND Attending Provider Non-Staff Family Provider Primary Care Provider Referring Provider Specialty: Naturopathy Address: [address] [place] [address], [id number] Email: Physical Therapy Initial Evaluation PT-OP-A Visit Information Start: 04/22/22 11:14 Freq: Status: Active Protocol: Document 04/24/22 11:17 AMB (Rec: 04/24/22 12:07 AMB [id number]) Out-Patient Physical Therapy Visit Information Visit Information Visit Type Initial Evaluation Visit Note 07/02 Visit Start Time 11:15 Visit Stop Time 12:00 Total Visit Minutes 45 Visit Number 1 PT-OP-B Current Condition Start: 04/22/22 11:14 Freq: Status: Active Protocol: Document 04/24/22 11:17 AMB (Rec: 04/24/22 12:07 AMB [id number]) Current Condition History of Current Condition Onset Date 2 years Current Complaints Bilateral foot pain History of Current Condition Increased stress and hypothyroid. Tingling in the toes has been present for a year and a half. Went to the neurologist reports nerve conduction test was negative. Reports pain after spinning thread-- lasted for several weeks. Then had increased pain after walking on the gravel not really while walking but later that evening . Had seen a chiropractor who put her in a neck brace and then had increased symptoms. Reports increased anxiety and depression. Reports insomnia , gets anxious when can't sleep. Trying to get off of gabapentin, taking it more for sleep, hasn't really noticed help with her foot pain. Did get a cold and felt like that increased her pain. 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 Reports feels like whole body is hot. No longer hiking, not doing much yardwork because of the pain. STanding increases burning. Raynauds sx. Heat increases pain, cold packs seem to help. Heel and arch of foot are the worst L foot worse than the right. Walking on the beach barefoot actually feels good. Personal Factors Other Personal Factors That May Effect hypothyroid, recent weight Therapy/Recovery loss due to being on strict elimination diet PT-OP-C Subjective Start: 04/22/22 11:14 Freq: Status: Active Protocol: Document 04/24/22 12:54 AMB (Rec: 04/24/22 12:59 AMB [id number]) Patient Questionnaires Foot & Ankle Ability Measure- ADL and Sports FAAM-ADL Score 61 FAAM-ADL Impairment 20 to 39% Impaired (Score 50- 66) Lower Extremity Functional Scale LEFS Score 59 LEFS Impairment 20 to 39% Impaired (Score 48- 62) PT-OP-J Posture/Palpation/Skin Start: 04/22/22 11:14 Freq: Status: Active Protocol: Document 04/24/22 11:15 AMB (Rec: 04/25/22 15:56 AMB [id number]) Palpation Assessment Location One Palpation Details Redness in depedent foot develops quickly. Feet cold to the touch but no changes in sweating, hair, skin noted. Generally high arch, denies pain change with passive great toe extension or palpation over heel or arch. PT-OP-K Range of Motion Start: 04/22/22 11:14 Freq: Status: Active Protocol: Document 04/24/22 11:15 AMB (Rec: 04/25/22 15:56 AMB [id number]) Ankle and Foot Goniometric Range of Motion Ankle and Foot ROM Limitations Comments WFL, L 2nd toe hammer toe, but ankle and great toe ROM WFL PT-OP-M Strength Start: 04/22/22 11:14 Freq: Status: Active Protocol: Document 04/24/22 11:15 AMB (Rec: 04/25/22 15:56 AMB [id number]) Ankle/Foot Strength Ankle and Foot Manual Muscle Testing Right Dorsiflexion (L4) 5 Normal Plantarflexion (S1) 4+ Good+ Inversion 4+ Good+ Eversion (S1) 4+ Good+ Left Dorsiflexion (L4) 5 Normal Plantarflexion (S1) 4+ Good+ Inversion 4+ Good+ Eversion (S1) 4+ Good+ Toe Strength Toe Manual Muscle Testing Right Great Toe Flexion 5 Normal Left Great Toe Extension 5 Normal PT-OP-T Assessment and Plan Start: 04/22/22 11:14 Freq: Status: Active Protocol: Document 04/24/22 11:15 AMB (Rec: 04/26/22 20:51 [facility] [id number]) Physical Therapy Assessment Rehab Potential Rehabilitation Potential Fair Evaluation Complexity Number of Personal Factors/Comorbidities 1-2 Number of Body Systems Impaired 3 Clinical Presentation at Evaluation Evolving Impairments Impairments Activity Tolerance,Functional Activities,Pain Goals Two Impairment Pain Short Term Goal (STG) Nori will sleep for 5 hours without being woken due to her foot pain. STG Duration 5 weeks Burn Out Scarfing Operator Goal (LTG) Nori will consistently walk for 1 mile without rebound foot pain. LTG Duration 10 weeks One Impairment HEP Short Term Goal (STG) Nori will be independent and consistent with a land and aquatic based HEP. STG Duration 5 weeks Assessment Summary Assessment Nori attends physical therapy with L>R foot pain, worst at the plantar surface but pain can radiate into the legs. Tingling and burning and makes it difficult to sleep. Tends to feel ok with activity while she is doing it, but then has pain later. Per pt report nerve conduction normal , aware she is anxious and depressed as a result of this. At a point where she is really just searching for why the pain is happening. She has restricted her activity, no longer hikes due to the pain. Physical exam not significant for ROM restriction, MMT weakness, was not especially tender during exam but did have increased pain the evening after PT exam as pt called the next day to discuss. Will start PT with more of a biopsychosocial model to work on ramping down anxiety and fear before working on graded return to activity. Physical Therapy Plan Frequency and Duration Frequency of Treatment 2x/Week Duration of treatment (weeks) 10 Plan of Care Start Date 04/24/22 Plan of Care End Date 07/03/22 Therapeutic Interventions Therapeutic Interventions Aquatic Therapy,Gait Training, Home Exercise Program,Joint Mobilizations,Manual Therapy, Neuromuscular Re-education, Self-Care/Home Management,Soft Tissue Mobilization, Therapeutic Activities, Therapeutic Exercises Modalities Cold Pack/Ice Massage,Electric Stimulation Next Visit Focus/Plan Next Note Type Treatment Note Next Visit Plan Prefers ice to heat. Begin with pain science education.
--- NOTE | 2022-04-24 21:00 | PT.OPPOC ---
Physical, Occupational & Speech Therapy At [facility] Current Diagnoses Cervicalgia (04/24/22) Pain in unspecified lower leg (04/24/22) Pain in unspecified foot (04/24/22) Visit Care Team Role Provider Type Danielle Becerra ND Attending Provider Non-Staff Family Provider Primary Care Provider Referring Provider Specialty: Naturopathy Address: [address] [place] [address], [id number] Email: Plan Of Care PT-OP-T Assessment and Plan Start: 04/22/22 11:14 Freq: Status: Active Protocol: Document 04/24/22 11:15 AMB (Rec: 04/26/22 20:51 AMB [id number]) Physical Therapy Assessment Rehab Potential Rehabilitation Potential Fair Evaluation Complexity Number of Personal Factors/Comorbidities 1-2 Number of Body Systems Impaired 3 Clinical Presentation at Evaluation Evolving Impairments Impairments Activity Tolerance,Functional Activities,Pain Goals Two Impairment Pain Short Term Goal (STG) Nori will sleep for 5 hours without being woken due to her foot pain. STG Duration 5 weeks [facility] Goal (LTG) Nori will consistently walk for 1 mile without rebound foot pain. LTG Duration 10 weeks One Impairment HEP Short Term Goal (STG) Nori will be independent and consistent with a land and aquatic based HEP. STG Duration 5 weeks Assessment Summary Assessment Nori attends physical therapy with L>R foot pain, worst at the plantar surface but pain can radiate into the legs. Tingling and burning and makes it difficult to sleep. Tends to feel ok with activity while she is doing it, but then has pain later. Per pt report nerve conduction normal , aware she is anxious and depressed as a result of this. At a point where she is really just searching for why the pain is happening. She has restricted her activity, no longer hikes due to the pain. Physical exam not significant for ROM restriction, MMT weakness, was not especially tender during exam but did have increased pain the evening after PT exam as pt called the next day to discuss. Will start PT with more of a biopsychosocial model to work on ramping down anxiety and fear before working on graded return to activity. Physical Therapy Plan Frequency and Duration Frequency of Treatment 2x/Week Duration of treatment (weeks) 10 Plan of Care Start Date 04/24/22 Plan of Care End Date 07/03/22 Therapeutic Interventions Therapeutic Interventions Aquatic Therapy,Gait Training, Home Exercise Program,Joint Mobilizations,Manual Therapy, Neuromuscular Re-education, Self-Care/Home Management,Soft Tissue Mobilization, Therapeutic Activities, Therapeutic Exercises Modalities Cold Pack/Ice Massage,Electric Stimulation Next Visit Focus/Plan Next Note Type Treatment Note Next Visit Plan Prefers ice to heat. Begin with pain science education. Plan of Care Plan of Care Start Date 04/24/22 Plan of Care End Date 07/03/22 Electronically Signed by: Sugey Blair, PT 04/26/22 2100 If you are in agreement with this Plan of Care, please return a signed and dated copy. I have reviewed this Plan of Care and certify that the skilled therapy services above are required to meet the patient?s needs. Physician Signature Date Printed Name and Credentials Clinical Instructor Signature Printed Name and Credentials
--- NOTE | 2022-04-27 12:00 | PT.OTN ---
Current Diagnoses Cervicalgia (04/27/22) Pain in unspecified lower leg (04/27/22) Pain in unspecified foot (04/27/22) Physical Therapy Treatment Note PT-OP-A Visit Information Start: 04/22/22 11:14 Freq: Status: Active Protocol: Document 04/27/22 11:20 AMB (Rec: 04/30/22 10:03 AMB [id number]) Out-Patient Physical Therapy Visit Information Visit Information Visit Type Treatment Note Visit Start Time 11:20 Visit Stop Time 12:00 Total Visit Minutes 40 Visit Number 2 PT-OP-B Current Condition Start: 04/22/22 11:14 Freq: Status: Active Protocol: Document 04/24/22 11:17 AMB (Rec: 04/24/22 12:07 AMB [id number]) Current Condition History of Current Condition Onset Date 2 years Current Complaints Bilateral foot pain History of Current Condition Increased stress and hypothyroid. Tingling in the toes has been present for a year and a half. Went to the neurologist reports nerve conduction test was negative. Reports pain after spinning thread-- lasted for several weeks. Then had increased pain after walking on the gravel not really while walking but later that evening . Had seen a chiropractor who put her in a neck brace and then had increased symptoms. Reports increased anxiety and depression. Reports insomnia , gets anxious when can't sleep. Trying to get off of gabapentin, taking it more for sleep, hasn't really noticed help with her foot pain. Did get a cold and felt like that increased her pain. 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 Reports feels like whole body is hot. No longer hiking, not doing much yardwork because of the pain. STanding increases burning. Raynauds sx. Heat increases pain, cold packs seem to help. Heel and arch of foot are the worst L foot worse than the right. Walking on the beach barefoot actually feels good. Personal Factors Other Personal Factors That May Effect hypothyroid, recent weight Therapy/Recovery loss due to being on strict elimination diet PT-OP-C Subjective Start: 04/22/22 11:14 Freq: Status: Active Protocol: Document 04/27/22 11:20 AMB (Rec: 04/30/22 10:03 AMB [id number]) OP-PT Subjective Patient Comments Patient Comments Pt arrives saying that she had an increase in pain after evaluation and had a harder time sleeping for the past two nights. PT-OP-J Posture/Palpation/Skin Start: 04/22/22 11:14 Freq: Status: Active Protocol: Document 04/24/22 11:15 AMB (Rec: 04/25/22 15:56 AMB [id number]) Palpation Assessment Location One Palpation Details Redness in depedent foot develops quickly. Feet cold to the touch but no changes in sweating, hair, skin noted. Generally high arch, denies pain change with passive great toe extension or palpation over heel or arch. PT-OP-K Range of Motion Start: 04/22/22 11:14 Freq: Status: Active Protocol: Document 04/24/22 11:15 AMB (Rec: 04/25/22 15:56 AMB [id number]) Ankle and Foot Goniometric Range of Motion Ankle and Foot ROM Limitations Comments WFL, L 2nd toe hammer toe, but ankle and great toe ROM WFL PT-OP-M Strength Start: 04/22/22 11:14 Freq: Status: Active Protocol: Document 04/24/22 11:15 AMB (Rec: 04/25/22 15:56 AMB [id number]) Ankle/Foot Strength Ankle and Foot Manual Muscle Testing Right Dorsiflexion (L4) 5 Normal Plantarflexion (S1) 4+ Good+ Inversion 4+ Good+ Eversion (S1) 4+ Good+ Left Dorsiflexion (L4) 5 Normal Plantarflexion (S1) 4+ Good+ Inversion 4+ Good+ Eversion (S1) 4+ Good+ Toe Strength Toe Manual Muscle Testing Right Great Toe Flexion 5 Normal Left Great Toe Extension 5 Normal PT-OP-Q Treatments Start: 04/22/22 11:14 Freq: Status: Active Protocol: Document 04/27/22 11:15 AMB (Rec: 04/27/22 16:10 AMB [id number]) Therapeutic Exercises Sidelying Exercises abd Side left Reps/Minutes 2x10 ER Side left Reps/Minutes 2x10 Comments heavy cues Self-Care/Home Management Treatment Activities Self-Care/Home Management Activities Instruction in deep breathing. Pt requires near constant cues to attend to current body rather than discussing previous pain flares/ problem solving causes of pain. Pt is very focused on external treatments ex: vitamin C infusion, acupuncture. Encouraged pt that these treatments could very well help her body heal, but that healing will come from within. Started to explain homunculus and role of acceptance, fight of flight system increasing the experience of pain, but pt has a difficult time with this and continues to focus on external treatments. PT-OP-T Assessment and Plan Start: 04/22/22 11:14 Freq: Status: Active Protocol: Document 04/27/22 11:20 AMB (Rec: 04/30/22 10:03 [facility] [id number]) Physical Therapy Assessment Goals Two Impairment Pain Short Term Goal (STG) Nori will sleep for 5 hours without being woken due to her foot pain. STG Duration 5 weeks Production Checker Goal (LTG) Nori will consistently walk for 1 mile without rebound foot pain. LTG Duration 10 weeks One Impairment HEP Short Term Goal (STG) Nori will be independent and consistent with a land and aquatic based HEP. STG Duration 5 weeks Assessment Summary Assessment Nori attends physical therapy visibly anxious, fidgeting, uncomfortable due to pain flare. After discussion she chose to cancel the remainder of her land based PT visits. She had a difficult time attending to her present body, is really in a space where she continues to want to find out why she is in pain and tends to catastrophize. Would benefit from pain science PT when she is in a space to hear it. Physical Therapy Plan Frequency and Duration Frequency of Treatment 2x/Week Duration of treatment (weeks) 10 Plan of Care Start Date 04/24/22 Plan of Care End Date 07/03/22 Therapeutic Interventions Therapeutic Interventions Aquatic Therapy,Gait Training, Home Exercise Program,Joint Mobilizations,Manual Therapy, Neuromuscular Re-education, Self-Care/Home Management,Soft Tissue Mobilization, Therapeutic Activities, Therapeutic Exercises Modalities Cold Pack/Ice Massage,Electric Stimulation Next Visit Focus/Plan Next Note Type Treatment Note Next Visit Plan Aquatic therapy- progress very slowly
--- NOTE | 2022-05-14 10:46 | PT.OPDS ---
Current Diagnoses Cervicalgia (04/27/22) Pain in unspecified lower leg (04/27/22) Pain in unspecified foot (04/27/22) Visit Care Team Role Provider Type Danielle Becerra ND Attending Provider Non-Staff Family Provider Primary Care Provider Referring Provider Specialty: Naturopathy Address: [address] [place] [address], [id number] Email: Visit Number Visit Number 2 Discharge Summary PT-OP-B Current Condition Start: 04/22/22 11:14 Freq: Status: Active Protocol: Document 04/24/22 11:17 AMB (Rec: 04/24/22 12:07 AMB [id number]) Current Condition History of Current Condition Onset Date 2 years Current Complaints Bilateral foot pain History of Current Condition Increased stress and hypothyroid. Tingling in the toes has been present for a year and a half. Went to the neurologist reports nerve conduction test was negative. Reports pain after spinning thread-- lasted for several weeks. Then had increased pain after walking on the gravel not really while walking but later that evening . Had seen a chiropractor who put her in a neck brace and then had increased symptoms. Reports increased anxiety and depression. Reports insomnia , gets anxious when can't sleep. Trying to get off of gabapentin, taking it more for sleep, hasn't really noticed help with her foot pain. Did get a cold and felt like that increased her pain. Was on an antiviral supplement with her order filler and actually increased pain. Reports feels like whole body is hot. No longer hiking, not doing much yardwork because of the pain. STanding increases burning. Raynauds sx. Heat increases pain, cold packs seem to help. Heel and arch of foot are the worst L foot worse than the right. Walking on the beach barefoot actually feels good. Personal Factors Other Personal Factors That May Effect hypothyroid, recent weight Therapy/Recovery loss due to being on strict elimination diet PT-OP-C Subjective Start: 04/22/22 11:14 Freq: Status: Active Protocol: Document 04/27/22 11:20 AMB (Rec: 04/30/22 10:03 AMB [id number]) OP-PT Subjective Patient Comments Patient Comments Pt arrives saying that she had an increase in pain after evaluation and had a harder time sleeping for the past two nights. PT-OP-J Posture/Palpation/Skin Start: 04/22/22 11:14 Freq: Status: Active Protocol: Document 04/24/22 11:15 AMB (Rec: 04/25/22 15:56 AMB [id number]) Palpation Assessment Location One Palpation Details Redness in depedent foot develops quickly. Feet cold to the touch but no changes in sweating, hair, skin noted. Generally high arch, denies pain change with passive great toe extension or palpation over heel or arch. PT-OP-K Range of Motion Start: 04/22/22 11:14 Freq: Status: Active Protocol: Document 04/24/22 11:15 AMB (Rec: 04/25/22 15:56 AMB [id number]) Ankle and Foot Goniometric Range of Motion Ankle and Foot ROM Limitations Comments WFL, L 2nd toe hammer toe, but ankle and great toe ROM WFL PT-OP-M Strength Start: 04/22/22 11:14 Freq: Status: Active Protocol: Document 04/24/22 11:15 AMB (Rec: 04/25/22 15:56 AMB [id number]) Ankle/Foot Strength Ankle and Foot Manual Muscle Testing Right Dorsiflexion (L4) 5 Normal Plantarflexion (S1) 4+ Good+ Inversion 4+ Good+ Eversion (S1) 4+ Good+ Left Dorsiflexion (L4) 5 Normal Plantarflexion (S1) 4+ Good+ Inversion 4+ Good+ Eversion (S1) 4+ Good+ Toe Strength Toe Manual Muscle Testing Right Great Toe Flexion 5 Normal Left Great Toe Extension 5 Normal PT-OP-T Assessment and Plan Start: 04/22/22 11:14 Freq: Status: Active Protocol: Document 05/14/22 10:46 AMB (Rec: 05/14/22 10:46 AMB [id number]) Physical Therapy Assessment Assessment Summary Assessment Pt calls in to state that she is not ready for PT at this time. Pt encouraged to return when ready. Physical Therapy Plan Discharge Physical Therapy Discharge Reasons Patient Request
--- NOTE | 2022-05-14 13:52 | PT.OTN ---
Current Diagnoses Cervicalgia (04/27/22) Pain in unspecified lower leg (04/27/22) Pain in unspecified foot (04/27/22) Physical Therapy Treatment Note PT-OP-A Visit Information Start: 04/22/22 11:14 Freq: Status: Active Protocol: Document 05/14/22 13:52 SAK (Rec: 05/14/22 13:52 SAK [id number]) Out-Patient Physical Therapy Visit Information Visit Information Visit Note DNS PT-OP-B Current Condition Start: 04/22/22 11:14 Freq: Status: Active Protocol: Document 04/24/22 11:17 AMB (Rec: 04/24/22 12:07 AMB [id number]) Current Condition History of Current Condition Onset Date 2 years Current Complaints Bilateral foot pain History of Current Condition Increased stress and hypothyroid. Tingling in the toes has been present for a year and a half. Went to the neurologist reports nerve conduction test was negative. Reports pain after spinning thread-- lasted for several weeks. Then had increased pain after walking on the gravel not really while walking but later that evening . Had seen a chiropractor who put her in a neck brace and then had increased symptoms. Reports increased anxiety and depression. Reports insomnia , gets anxious when can't sleep. Trying to get off of gabapentin, taking it more for sleep, hasn't really noticed help with her foot pain. Did get a cold and felt like that increased her pain. Was on an antiviral supplement with her negative cutter and actually increased pain. Reports feels like whole body is hot. No longer hiking, not doing much yardwork because of the pain. STanding increases burning. Raynauds sx. Heat increases pain, cold packs seem to help. Heel and arch of foot are the worst L foot worse than the right. Walking on the beach barefoot actually feels good. Personal Factors Other Personal Factors That May Effect hypothyroid, recent weight Therapy/Recovery loss due to being on strict elimination diet PT-OP-C Subjective Start: 04/22/22 11:14 Freq: Status: Active Protocol: Document 04/27/22 11:20 AMB (Rec: 04/30/22 10:03 AMB [id number]) OP-PT Subjective Patient Comments Patient Comments Pt arrives saying that she had an increase in pain after evaluation and had a harder time sleeping for the past two nights. PT-OP-J Posture/Palpation/Skin Start: 04/22/22 11:14 Freq: Status: Active Protocol: Document 04/24/22 11:15 AMB (Rec: 04/25/22 15:56 AMB [id number]) Palpation Assessment Location One Palpation Details Redness in depedent foot develops quickly. Feet cold to the touch but no changes in sweating, hair, skin noted. Generally high arch, denies pain change with passive great toe extension or palpation over heel or arch. PT-OP-K Range of Motion Start: 04/22/22 11:14 Freq: Status: Active Protocol: Document 04/24/22 11:15 AMB (Rec: 04/25/22 15:56 AMB [id number]) Ankle and Foot Goniometric Range of Motion Ankle and Foot ROM Limitations Comments WFL, L 2nd toe hammer toe, but ankle and great toe ROM WFL PT-OP-M Strength Start: 04/22/22 11:14 Freq: Status: Active Protocol: Document 04/24/22 11:15 AMB (Rec: 04/25/22 15:56 AMB [id number]) Ankle/Foot Strength Ankle and Foot Manual Muscle Testing Right Dorsiflexion (L4) 5 Normal Plantarflexion (S1) 4+ Good+ Inversion 4+ Good+ Eversion (S1) 4+ Good+ Left Dorsiflexion (L4) 5 Normal Plantarflexion (S1) 4+ Good+ Inversion 4+ Good+ Eversion (S1) 4+ Good+ Toe Strength Toe Manual Muscle Testing Right Great Toe Flexion 5 Normal Left Great Toe Extension 5 Normal PT-OP-Q Treatments Start: 04/22/22 11:14 Freq: Status: Active Protocol: Document 04/27/22 11:15 AMB (Rec: 04/27/22 16:10 AMB [id number]) Therapeutic Exercises Sidelying Exercises abd Side left Reps/Minutes 2x10 ER Side left Reps/Minutes 2x10 Comments heavy cues Self-Care/Home Management Treatment Activities Self-Care/Home Management Activities Instruction in deep breathing. Pt requires near constant cues to attend to current body rather than discussing previous pain flares/ problem solving causes of pain. Pt is very focused on external treatments ex: vitamin C infusion, acupuncture. Encouraged pt that these treatments could very well help her body heal, but that healing will come from within. Started to explain homunculus and role of acceptance, fight of flight system increasing the experience of pain, but pt has a difficult time with this and continues to focus on external treatments. PT-OP-T Assessment and Plan Start: 04/22/22 11:14 Freq: Status: Active Protocol: Document 05/14/22 10:46 AMB (Rec: 05/14/22 10:46 [facility] [id number]) Physical Therapy Assessment Assessment Summary Assessment Pt calls in to state that she is not ready for PT at this time. Pt encouraged to return when ready. Physical Therapy Plan Discharge Physical Therapy Discharge Reasons Patient Request
--- NOTE | 2022-05-14 13:54 | PT-OP ANOTE ---
DNS for aquatic PT today.
== END 2022-05-15 12:11 | disposition home or self-care (01) ==
LOC: PHYS 11:15
PROVIDERS: Family Provider Naturopath; PCP Naturopath; Referring Provider Naturopath; Visit Provider Naturopath
DX: M54.2 Cervicalgia (principal); M79.673 Pain in unspecified foot; M79.669 Pain in unspecified lower leg
CPT/HCPCS: 97162; 97535

== ENCOUNTER 2022-05-12 08:36 | Emergency (ER) | payer OTHER, SELFPAY ==
[2022-05-12 08:51] VITALS: BP 167/79; PULSE 80; RESP 14; TEMP 36.4; O2SAT 99; BMI 18.4
[2022-05-12 09:52] LABS: Amorphous Sediment Urine 2+; Bacteria Urine None Seen; Culture Indicated Urine Cult Not Indicated; RBC Urine 1-5/HPF (0-5/HPF); Renal Epithelial Cells Urine 1-5/HPF (0-1/HPF); Squamous Epithelial Cell Urine 0-1 /HPF (0-5/HPF); WBC Urine None Seen (0-5/HPF)
[2022-05-12 10:19] LABS: Add Manual Diff / Slide Review NO; Basophils Absolute Auto 0 /uL (0-100); Basophils Percent Auto 0.6 % (0-2); Eosinophils Absolute Auto 0 /uL (0-450); Eosinophils Percent Auto 0.2 % (2-4); Hemoglobin 15.2 g/dL (12.0-16.0); Lymphocytes Absolute Auto 500 /uL (1100-4500); Lymphocytes Percent Auto 14.2 % (25-40); Mean Corpuscular HGB Conc 33.8 % (30-36); Mean Corpuscular Hemoglobin 32.6 PG (26-34); Mean Corpuscular Volume 96.5 fL (80-100); Monocytes Absolute Auto 300 /uL (0-900); Monocytes Percent Auto 6.9 % (3-14); Neutrophils Absolute Auto 2800 /uL (1500-7000); Neutrophils Percent Auto 78.1 % (50-75); Platelet Count 236 X10^3/uL (150-400); Red Blood Cell Count 4.67 X10^6/uL (4.0-5.2); Red Cell Distribution Width 13.2 % (11.6-14.8); White Blood Cell Count 3.6 X10^3/uL (4.5-11.0)
[2022-05-12 10:28] LABS: NT-proBNP (BNP-Adult 18+) 163 pg/mL (<125)
[2022-05-12 11:06] LABS: BUN Creatinine Ratio 12.1 (6-22); Blood Urea Nitrogen 7 mg/dL (7-17); Calcium 8.9 mg/dL (8.4-10.2); Carbon Dioxide 31 mmol/L (22-32); Chloride 93 mmol/L (98-107); Estimated Glomerular Filt Rate > 60 mL/min (>60); Glucose 95 mg/dL (80-110); HEMOLYSIS < 15 (0-50); Potassium 4.3 mmol/L (3.4-5.1); Sodium 129 mmol/L (137-145)
--- NOTE | 2022-05-12 12:02 | ED.RECABL ---
HPI - Recheck/Abnormal Lab/Rx <Queta Lalo Collins [facility] - Last Filed: 05/12/22 14:56> General Chief Complaint: Recheck/Abnormal Lab/Rx Stated Complaint: cant sleep/personal reason Time Seen by Provider: 05/12/22 12:01 Source: patient Mode of arrival: Ambulatory History of Present Illness HPI narrative: This is a 7-year-old female who presents to the emergency department with extreme anxiety and distress about her lack of sleep, urinary symptoms which started last night, and exacerbation of her bilateral lower extremity neuropathy. Patient states that she has a history of hypothyroidism, she has seen multiple specialists over the last [address] Rabago From neurology regarding her neuropathy without diagnosis for a cause. She has seen Dr. Oneal from Hematology, Dr. Sanchez from rheumatology, and states that she has been worked up without diagnosis and multiple sclerosis has been ruled out. Patient states that for the last 2 weeks she has been on 900 mg of gabapentin, she says 3 days ago she was started on nortriptyline by neurology but she says it made her feel bad so she stopped taking. She endorses that she is tried shooting down her gabapentin and stop taking it altogether as well. She was supposed to take 600 mg for awhile and then take 300 and then take 100 but she just went down to 100 because she states that nortriptyline made her too sleepy with a 900 mg of gabapentin. We discussed these medications at length. Patient is extremely anxious at this moment, is tearful, hyperventilating and difficult to console. She is receptive after explanation and her is supportive she has not had a fever, chills, vomiting, flank pain, states that she has been taking Ambien with magnesium to try and sleep and has had intermittent sleep with disruption. Related Data Home Medications Medication Instructions Recorded Confirmed carditone 1 tab PO DAILY 01/24/21 05/24/22 naltrexone 50 mg tablet 50 mg PO DAILY 08/30/21 05/24/22 Lactobacillus 40-Bifidobact 1 cap PO DAILY 08/31/21 05/24/22 3-S.thermophilus 100 billion cell capsule (Probiotic) ascorbic acid (vitamin C) (Vitamin 1 g PO PRN PRN travel 08/31/21 05/24/22 C oral powder) thyroid (pork) 30 mg tablet (ADZING AND BORING MACHINE FEEDER 30 mg PO 2XW 09/13/21 05/24/22 Thyroid) thyroid (pork) 60 mg tablet (ADZING AND BORING MACHINE FEEDER 60 mg PO 5XW 09/13/21 05/24/22 Thyroid) vitamin K2 100 mcg capsule 100 mcg PO DAILY 10/31/21 05/24/22 Previous Rx's Medication Instructions Recorded lorazepam 1 mg tablet 0.5 mg PO BID PRN sleep/anxiety 05/24/22 #14 tabs Allergies Allergy/AdvReac Type Severity Reaction Status Date / Time metoprolol Allergy Intermediate feet turn Verified 05/24/22 16:10 white and feel hot losartan Allergy numbness Verified 05/24/22 16:10 and tingling of entire body <Bekcy Li DO - Last Filed: 05/25/22 11:10> History of Present Illness HPI narrative: This is a 61-year-old female who presents to the emergency department with extreme anxiety and distress about her lack of sleep, urinary symptoms which started last night, and exacerbation of her bilateral lower extremity neuropathy. Patient states that she has a history of hypothyroidism, she has seen multiple specialists over the last [address] Rabago From neurology regarding her neuropathy without diagnosis for a cause. She has seen Dr. Oneal from Hematology, Dr. Sanchez from rheumatology, and states that she has been worked up without diagnosis and multiple sclerosis has been ruled out. Patient states that for the last 2 weeks she has been on 900 mg of gabapentin, she says 3 days ago she was started on nortriptyline by neurology but she says it made her feel bad so she stopped taking. She endorses that she is tried shooting down her gabapentin and stop taking it altogether as well. She was supposed to take 600 mg for awhile and then take 300 and then take 100 but she just went down to 100 because she states that nortriptyline made her too sleepy with a 900 mg of gabapentin. We discussed these medications at length. Patient is extremely anxious at this moment, is tearful, hyperventilating and difficult to console. She is receptive after explanation and her is supportive she has not had a fever, chills, vomiting, flank pain, states that she has been taking Ambien with magnesium to try and sleep and has had intermittent sleep with disruption. Review of Systems <JOYCE Key - Last Filed: 05/12/22 14:56> Review of Systems Narrative: Review of systems is negative for acute abnormalities unless otherwise noted in HPI Patient History <JOYCE Key - Last Filed: 05/12/22 14:56> Medical History Elevated BP without diagnosis of hypertension Family history of heart disease Juan Manuel's disease History of anemia Hypothyroidism (~2018) Rib pain on left side Rosacea (~2018) Segmental and somatic dysfunction of rib cage Thoracic region somatic dysfunction Surgical History Anesthesia History of breast surgery (~2007) Family History Father History of heart attack Social History Smoking Status: Never smoker Smoking Status: Never smoker alcohol intake frequency: holidays/special occasions only Substance Use Type: does not use Exam <JOYCE Key - Last Filed: 05/12/22 14:56> Narrative Exam Narrative: Reviewed vitals signs and nursing notes. General: cooperative, anxious, fidgeting well groomed, thin HEENT: symmetrical facial expressions, moist mucous membranes Cardiovascular: Tachycardic rate and regular rhythm, no peripheral edema, warm extremities GI: abdomen soft, nontender to palpation, nondistended, without masses, rebound tenderness or exquisite tenderness with exam. No CVA tenderness MSK: moves all extremities, neurovascularly intact, no weakness, normal tone Skin: brisk capillary refill, without pallor or erythema Neuro: normal speech and cognition, A&O x3, ambulatory, clear speech Psych: mental status is grossly normal, congruent mood, normal affect, pleasant and cooperative Initial Vital Signs Initial Vital Signs: Vital Signs Temperature 97.6 F 05/12/22 08:51 Pulse Rate 80 05/12/22 08:51 Respiratory Rate 14 05/12/22 08:51 Blood Pressure 167/79 H 05/12/22 08:51 Pulse Oximetry 99 05/12/22 08:51 Oxygen Delivery Method 05/12/22 08:51 <Becky Li DO - Last Filed: 05/25/22 11:10> Initial Vital Signs Initial Vital Signs: Vital Signs Temperature 97.6 F 05/12/22 08:51 Pulse Rate 80 05/12/22 08:51 Respiratory Rate 14 05/12/22 08:51 Blood Pressure 167/79 H 05/12/22 08:51 Pulse Oximetry 99 05/12/22 08:51 Oxygen Delivery Method 05/12/22 08:51 Course <JOYCE Key - Last Filed: 05/12/22 14:56> Orders Ordered: Discontinued Medications Cephalexin HCl (Cephalexin 250 Mg Capsule) 500 mg PO NOW ONE Stop: 05/12/22 12:26 Last Admin: 05/12/22 12:39 Dose: 500 mg Documented By: AT Gabapentin (Gabapentin 100 Mg Capsule) 100 mg PO NOW ONE Stop: 05/12/22 12:35 Last Admin: 05/12/22 12:57 Dose: Not Given Documented By: AT Lorazepam (Lorazepam 0.5 Mg Tablet) 1 mg PO NOW ONE Stop: 05/12/22 12:27 Last Admin: 05/12/22 12:44 Dose: 1 mg Documented By: AT Phenazopyridine HCl (Phenazopyridine 100 Mg Tablet) 100 mg PO NOW ONE Stop: 05/12/22 12:26 Last Admin: 05/12/22 12:39 Dose: 100 mg Documented By: AT Vital Signs Vital signs: Vital Signs - 8 hr 05/12/22 08:51 Temperature 97.6 F Pulse Rate 80 Respiratory Rate 14 Blood Pressure 167/79 H Pulse Oximetry 99 Oxygen Delivery Method Room Air <Becky Li DO - Last Filed: 05/25/22 11:10> Orders Ordered: Discontinued Medications Cephalexin HCl (Cephalexin 250 Mg Capsule) 500 mg PO NOW ONE Stop: 05/12/22 12:26 Last Admin: 05/12/22 12:39 Dose: 500 mg Documented By: AT Gabapentin (Gabapentin 100 Mg Capsule) 100 mg PO NOW ONE Stop: 05/12/22 12:35 Last Admin: 05/12/22 12:57 Dose: Not Given Documented By: AT Lorazepam (Lorazepam 0.5 Mg Tablet) 1 mg PO NOW ONE Stop: 05/12/22 12:27 Last Admin: 05/12/22 12:44 Dose: 1 mg Documented By: AT Phenazopyridine HCl (Phenazopyridine 100 Mg Tablet) 100 mg PO NOW ONE Stop: 05/12/22 12:26 Last Admin: 05/12/22 12:39 Dose: 100 mg Documented By: AT Vital Signs Vital signs: Vital Signs - 8 hr 05/12/22 08:51 Temperature 97.6 F Pulse Rate 80 Respiratory Rate 14 Blood Pressure 167/79 H Pulse Oximetry 99 Oxygen Delivery Method Room Air MDM - Recheck/Abnormal Lab/Rx <JOYCE Key - Last Filed: 05/12/22 14:56> Lab Data Result diagrams: 05/12/22 09:48 05/12/22 10:43 Labs: Lab Results 05/12/22 05/12/22 05/12/22 Range/Units 09:05 09:48 09:48 WBC 3.6 L (4.5-11.0) X10^3/uL RBC 4.67 (4.0-5.2) X10^6/uL Hgb 15.2 (12.0-16.0) g/dL Hct 45.0 (36-46) % MCV 96.5 (80-100) fL MCH 32.6 (26-34) PG MCHC 33.8 (30-36) % RDW 13.2 (11.6-14.8) % Plt Count 236 (150-400) X10^3/uL Neut % (Auto) 78.1 H (50-75) % Lymph % (Auto) 14.2 L (25-40) % Edwards % (Auto) 6.9 (3-14) % Eos % (Auto) 0.2 L (2-4) % Baso % (Auto) 0.6 (0-2) % Neut # (Auto) 2800 (6115-9578) /uL Lymph # (Auto) 500 L (6126-5052) /uL Edwards # (Auto) 300 (0-900) /uL Eos # (Auto) 0 (0-450) /uL Baso # (Auto) 0 (0-100) /uL Sodium (137-145) mmol/L Potassium (3.4-5.1) mmol/L Chloride (98-107) mmol/L Carbon Dioxide (22-32) mmol/L BUN (7-17) mg/dL Creatinine (0.52-1.04) mg/dL Estimated GFR (>60) mL/min BUN/Creatinine Ratio (6-22) Glucose (80-110) mg/dL Calcium (8.4-10.2) mg/dL NT-Pro-B Natriuret Pep 163 H (<125) pg/mL TSH (0.47-4.68) uIU/mL Urine RBC 1-5/hpf (0-5/HPF) Urine WBC None seen (0-5/HPF) Ur Squamous Epith Cells 0-1 /hpf (0-5/HPF) Ur Renal Epithelial Cell 1-5/hpf H (0-1/HPF) Amorphous Sediment 2+ Urine Bacteria None seen (None) Ur Culture Indicated? Cult not indicated 05/12/22 05/12/22 Range/Units 09:48 10:43 WBC (4.5-11.0) X10^3/uL RBC (4.0-5.2) X10^6/uL Hgb (12.0-16.0) g/dL Hct (36-46) % MCV (80-100) fL MCH (26-34) PG MCHC (30-36) % RDW (11.6-14.8) % Plt Count (150-400) X10^3/uL Neut % (Auto) (50-75) % Lymph % (Auto) (25-40) % Edwards % (Auto) (3-14) % Eos % (Auto) (2-4) % Baso % (Auto) (0-2) % Neut # (Auto) (2035-7420) /uL Lymph # (Auto) (4063-6644) /uL Edwards # (Auto) (0-900) /uL Eos # (Auto) (0-450) /uL Baso # (Auto) (0-100) /uL Sodium 129 L (137-145) mmol/L Potassium 4.3 (3.4-5.1) mmol/L Chloride 93 L (98-107) mmol/L Carbon Dioxide 31 (22-32) mmol/L BUN 7 (7-17) mg/dL Creatinine 0.58 (0.52-1.04) mg/dL Estimated GFR > 60 (>60) mL/min BUN/Creatinine Ratio 12.1 (6-22) Glucose 95 (80-110) mg/dL Calcium 8.9 (8.4-10.2) mg/dL NT-Pro-B Natriuret Pep (<125) pg/mL TSH 4.30 (0.47-4.68) uIU/mL Urine RBC (0-5/HPF) Urine WBC (0-5/HPF) Ur Squamous Epith Cells (0-5/HPF) Ur Renal Epithelial Cell (0-1/HPF) Amorphous Sediment Urine Bacteria (None) Ur Culture Indicated? Urine Dip Bedside Urine Glucose Negative Bedside Urine Bilirubin - Negative Bedside Urine Ketone - Negative Urine Specific Weston 1.015 Bedside Urine Occult Blood + Bedside Urine pH 7.5 Bedside Urine Protein + 30 Bedside Urine Urobilinogen - Negative Bedside Urine Nitrite - Negative Bedside Urine Leukocytes - Negative Esterase MDM Narrative Medical decision making narrative: This is a 7-year-old female presents to the emergency department complaining of insomnia after she has recently changed a lot of her medications. She was started on nortriptyline by her neurologist, took it for 3 days and then stopped cold turkey. Her primary care provider Danielle Mandujano has her on a gabapentin taper which she also stopped and is trying to not take because she feared sedation with the nortriptyline. I spent approximately 30 minutes talking with patient through her anxiety and symptoms, she has multiple specialists involved including Hematology, Neurology, Rheumatology, and her primary care provider who is a block and case maker. She needs to follow her specialist medication instructions as they are the same recommendations that I have today. I recommended that if the nortriptyline causes her too much discomfort then she needs to at least take half of that tab and keep it consistent for it to start working. She does not have any focal neuro deficits on my exam, she is very anxious and tearful and complains of not sleeping for many nights. She had dysuria start last night with urinary frequency and urgency overnight. She has history of hypothyroidism, and neuropathy which is being worked up by her specialist and determined to not be multiple sclerosis among other Neuro no logical diseases and she does not have a history of diabetes either. Today her lab work is consistent with her prior lab work, mild leukopenia at 3.6 and this is stable, no anemia, there is a mild left shift, hyponatremia with a sodium of 129 but this is consistent with her priors in her most recent 130, creatinine is 0.58, BNP is 163, TSH is 4.3. Patient takes ADZING AND BORING MACHINE FEEDER thyroid for this. I will loop in her specialist to this chart and patient understands to call them Saturday morning. Patient's urine was found to have renal epithelial cells, and she has dysuria with urinary frequency, opted to treat her for cystitis and a culture of her urine was ordered. She was given cephalexin for this, lorazepam for as needed anxiety, and sleep. I encouraged her to take gabapentin at 100 mg doses to treat her neuropathy as well as her insomnia and to start taking her nortriptyline but to keep her doses either at half of it or full dose and decrease the gabapentin to 100 mg. I think she had a medication withdrawal as part of her symptoms today, it could be related to the hyponatremia and insomnia and potential bladder infection. She was given strict return precautions, her is supportive an understanding and patient will focus on hydration and p.o. intake. Patient is appropriate and amenable to discharge home. Vital signs are stable on repeat examination is unremarkable. Patient has been informed of results. Patient has been given strict return to ER precautions for any new or worsening symptoms. Patient understands to follow up closely with outpatient providers as instructed. Patient understands plan and agrees to discharge home. All questions and concerns answered at this time. <Becky Li, DO - Last Filed: 05/25/22 11:10> Lab Data Labs: Lab Results 05/12/22 05/12/22 05/12/22 Range/Units 09:05 09:48 09:48 WBC 3.6 L (4.5-11.0) X10^3/uL RBC 4.67 (4.0-5.2) X10^6/uL Hgb 15.2 (12.0-16.0) g/dL Hct 45.0 (36-46) % MCV 96.5 (80-100) fL MCH 32.6 (26-34) PG MCHC 33.8 (30-36) % RDW 13.2 (11.6-14.8) % Plt Count 236 (150-400) X10^3/uL Neut % (Auto) 78.1 H (50-75) % Lymph % (Auto) 14.2 L (25-40) % Edwards % (Auto) 6.9 (3-14) % Eos % (Auto) 0.2 L (2-4) % Baso % (Auto) 0.6 (0-2) % Neut # (Auto) 2800 (1923-6111) /uL Lymph # (Auto) 500 L (2533-7749) /uL Edwards # (Auto) 300 (0-900) /uL Eos # (Auto) 0 (0-450) /uL Baso # (Auto) 0 (0-100) /uL Sodium (137-145) mmol/L Potassium (3.4-5.1) mmol/L Chloride (98-107) mmol/L Carbon Dioxide (22-32) mmol/L BUN (7-17) mg/dL Creatinine (0.52-1.04) mg/dL Estimated GFR (>60) mL/min BUN/Creatinine Ratio (6-22) Glucose (80-110) mg/dL Calcium (8.4-10.2) mg/dL NT-Pro-B Natriuret Pep 163 H (<125) pg/mL TSH (0.47-4.68) uIU/mL Urine RBC 1-5/hpf (0-5/HPF) Urine WBC None seen (0-5/HPF) Ur Squamous Epith Cells 0-1 /hpf (0-5/HPF) Ur Renal Epithelial Cell 1-5/hpf H (0-1/HPF) Amorphous Sediment 2+ Urine Bacteria None seen (None) Ur Culture Indicated? Cult not indicated 05/12/22 05/12/22 Range/Units 09:48 10:43 WBC (4.5-11.0) X10^3/uL RBC (4.0-5.2) X10^6/uL Hgb (12.0-16.0) g/dL Hct (36-46) % MCV (80-100) fL MCH (26-34) PG MCHC (30-36) % RDW (11.6-14.8) % Plt Count (150-400) X10^3/uL Neut % (Auto) (50-75) % Lymph % (Auto) (25-40) % Edwards % (Auto) (3-14) % Eos % (Auto) (2-4) % Baso % (Auto) (0-2) % Neut # (Auto) (1701-7357) /uL Lymph # (Auto) (6227-1685) /uL Edwards # (Auto) (0-900) /uL Eos # (Auto) (0-450) /uL Baso # (Auto) (0-100) /uL Sodium 129 L (137-145) mmol/L Potassium 4.3 (3.4-5.1) mmol/L Chloride 93 L (98-107) mmol/L Carbon Dioxide 31 (22-32) mmol/L BUN 7 (7-17) mg/dL Creatinine 0.58 (0.52-1.04) mg/dL Estimated GFR > 60 (>60) mL/min BUN/Creatinine Ratio 12.1 (6-22) Glucose 95 (80-110) mg/dL Calcium 8.9 (8.4-10.2) mg/dL NT-Pro-B Natriuret Pep (<125) pg/mL TSH 4.30 (0.47-4.68) uIU/mL Urine RBC (0-5/HPF) Urine WBC (0-5/HPF) Ur Squamous Epith Cells (0-5/HPF) Ur Renal Epithelial Cell (0-1/HPF) Amorphous Sediment Urine Bacteria (None) Ur Culture Indicated? 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, hypnotic or anxiolytic use, unspecified with withdrawal, unspecified Insomnia Qualifiers: Insomnia type: drug-induced Qualified Code(s): F19.982 - Other psychoactive substance use, unspecified with psychoactive substance-induced sleep disorder Acute cystitis Qualifiers: Hematuria presence: without hematuria Qualified Code(s): N30.00 - Acute cystitis without hematuria Instructions: Creating a Healthy Sleep Routine, Generalized Anxiety Disorder, Acute Cystitis, DI for Hyponatremia, DI for Insomnia, Drug Withdrawal Activity Restrictions/Additional Instructions: *You have been diagnosed with a bladder infection, please take the antibiotic twice a day for the next 7 days and drink plenty of water. Please start taking your nortriptyline today, take half of a tab if you do not feel comfortable with that. I suggest taking 1-2 capsules of gabapentin to help you go to sleep and see if that works today. If it does not work, please add half of a tab of lorazepam, and practice a healthy routine. Please make your appointments for follow-up on Saturday, I need you to follow-up with your neurologist, the astrochemist in June and Danielle Mandujano. Please follow her directions to a T and consult with her about medication changes, this has to be done carefully because your symptoms are not comfortable when you feel like this. I hope you feel better soon, the nortriptyline will be helpful for your lower extremity neuropathy, please give it 2 weeks at least at half a dose, use gabapentin occasionally as 100 mg doses to help with numbness and tingling beyond what you can tolerate. I hope you feel better soon. *What to do: *Please continue to take your regular medications as directed. [ x] New medication prescriptions sent to your pharmacy: [[facility] ] [ ] New medication written as a paper prescription [ ] No new medications given *Please follow up with your primary care provider in 2-3 days, call for an appointment. Let them know you were seen in the Emergency Department and that we asked that you be seen for follow-up. We will electronically transmit a record of today's note if your PCP is in our system *If you do not have a primary care provider please contact [phone] to establish care with one of the [facility] primary care providers. *Return to Emergency Department if you should have any new, worsening, or concerning symptoms, such as [fever greater than 101F, chills, worsening pain, persistent vomiting or other bothersome symptoms]. Prescriptions: No Action carditone 1 tab PO DAILY lorazepam 1 mg tablet 0.5 mg PO BID PRN (Reason: sleep/anxiety) Qty: 14 0RF naltrexone 50 mg Tablet 50 mg PO DAILY Vitamin C Powder 1 g PO PRN PRN (Reason: travel) Label Comments: camu camu powder Probiotic 100 billion cell Capsule 1 cap PO DAILY thyroid (pork) [ADZING AND BORING MACHINE FEEDER Thyroid] 30 mg tablet 30 mg PO 2XW thyroid (pork) [ADZING AND BORING MACHINE FEEDER Thyroid] 60 mg tablet 60 mg PO 5XW vitamin K2 100 mcg Capsule 100 mcg PO DAILY Referrals: Sandi Longo MD [Non-Staff] - Mark Oneal MD [Physician] - Danielle Becerra ND [Primary Care Provider] - Visit Report Forms: Patient Portal/API <Becky Li DO - Last Filed: 05/25/22 11:10> Cosign ED Attending Blancaature Attestation: I was immediately available in the department for consultation. Documentation has been reviewed.
[2022-05-12] MEDS: cephALEXin 250 MG CAPSULE 500 MG PO (12:39)
[2022-05-12] MEDS: PHENAZOPYRIDINE 100 MG TABLET PO (12:39)
[2022-05-12] MEDS: LORazepam 0.5 MG TABLET 1 MG PO (12:44)
== END 2022-05-12 12:59 | disposition home or self-care (01) ==
PROVIDERS: Emergency Medicine; Emergency Provider Nurse Practitioner Critical Care Medicine; Family Provider Naturopath; PCP Naturopath
DX: F19.982 Other psychoactive substance use, unspecified with psychoactive substance-induced sleep disorder (principal); N30.00 Acute cystitis without hematuria; F13.939 Sedative, hypnotic or anxiolytic use, unspecified with withdrawal, unspecified; E87.1 Hypo-osmolality and hyponatremia
CPT/HCPCS: 36415; 80048; 81003; 81015; 83880; 84443; 85025; 87086; 99284

== ENCOUNTER → 2022-05-14 15:29 | Outpatient (CLI) | payer OTHER, SELFPAY ==
[2022-05-14 17:37] LABS: Ferritin 50 ng/mL (11-264)
[2022-05-15 07:55] LABS: Alanine Aminotransferase 26 IU/L (<35); Albumin 4.4 g/dL (3.5-5.0); Albumin Globulin Ratio 1.5 (1.0-2.8); Alkaline Phosphatase 141 U/L (38-126); Aspartate Aminotransferase 30 IU/L (14-36); BUN Creatinine Ratio 13.2 (6-22); Bilirubin Total 0.5 mg/dL (0.2-1.3); Blood Urea Nitrogen 10 mg/dL (7-17); Calcium 9.1 mg/dL (8.4-10.2); Carbon Dioxide 29 mmol/L (22-32); Chloride 92 mmol/L (98-107); Estimated Glomerular Filt Rate > 60 mL/min (>60); Globulin 2.9 g/dL (1.7-4.1); Glucose 82 mg/dL (80-110); HEMOLYSIS 18 (0-50); Potassium 4.8 mmol/L (3.4-5.1); Sodium 131 mmol/L (137-145); Total Protein 7.3 g/dL (6.3-8.2)
[2022-05-15 12:08] LABS: Thyroid Peroxidase Antibodies 12 IU/mL (0-34)
[2022-05-15 13:57] LABS: Free T3, Triiodothyronine Free 3.61 pg/mL (2.77-5.27); Free T4, Direct Thyroxine 1.37 ng/dL (0.78-2.19)
[2022-05-15 14:11] LABS: Thyroid Stimulating Hormone 3.26 uIU/mL (0.47-4.68)
[2022-05-15 15:04] LABS: Hemoglobin A1C% w Est Avg Glu 5.1 % (4.0-6.0)
[2022-05-15 16:23] LABS: Arsenic 1 ug/L (0-9); Lead, Blood 1.2 ug/dL (0.0-3.4); Mercury, Blood 3.1 ug/L (0.0-14.9)
[2022-05-16 10:56] LABS: Parvovirus B19 IgG 1.3 index (0.0-0.8); Parvovirus B19 IgM 0.1 index (0.0-0.8)
[2022-05-16 11:04] LABS: EBV Virus IgM Ab < 36.0 U/mL (0.0-35.9)
[2022-05-18 18:36] LABS: Human Herpesvirus 6 AB IgG 4.27 index (.)
[2022-05-19 01:08] LABS: M pneumoniae IgG Ab 103 U/mL (0-99)
[2022-05-21 16:03] LABS: Epstein Barr Virus by PCR Negative (Negative)
== END ==
PROVIDERS: Family Provider Naturopath; PCP Naturopath; Referring Provider Naturopath; Visit Provider Naturopath
DX: G60.9 Hereditary and idiopathic neuropathy, unspecified (principal); G47.00 Insomnia, unspecified; F43.22 Adjustment disorder with anxiety; E06.3 Autoimmune thyroiditis; R76.8 Other specified abnormal immunological findings in serum; R53.82 Chronic fatigue, unspecified; E03.9 Hypothyroidism, unspecified; D72.818 Other decreased white blood cell count
CPT/HCPCS: 36415; 80053; 82157; 82175; 82300; 82728; 83036; 83655; 83825; 84439; 84443; 84481; 86060; 86376; 86631; 86632; 86665; 86738; 86747; 86790; 87798

== ENCOUNTER → 2022-06-28 13:23 | Outpatient (CLI) | payer OTHER, SELFPAY ==
[2022-06-28 14:19] LABS: Add Manual Diff / Slide Review NO; Basophils Absolute Auto 0 /uL (0-100); Basophils Percent Auto 0.7 % (0-2); Eosinophils Absolute Auto 0 /uL (0-450); Eosinophils Percent Auto 1.4 % (2-4); Hematocrit 40.9 % (36-46); Hemoglobin 13.5 g/dL (12.0-16.0); Lymphocytes Absolute Auto 800 /uL (1100-4500); Lymphocytes Percent Auto 23.6 % (25-40); Mean Corpuscular Hemoglobin 32.4 PG (26-34); Mean Corpuscular Volume 98.4 fL (80-100); Monocytes Absolute Auto 300 /uL (0-900); Monocytes Percent Auto 7.4 % (3-14); Neutrophils Absolute Auto 2300 /uL (1500-7000); Neutrophils Percent Auto 66.9 % (50-75); Platelet Count 176 X10^3/uL (150-400); Red Blood Cell Count 4.16 X10^6/uL (4.0-5.2); Red Cell Distribution Width 13.6 % (11.6-14.8); White Blood Cell Count 3.5 X10^3/uL (4.5-11.0)
[2022-06-28 14:56] LABS: Uric Acid 3.7 mg/dL (2.5-6.2)
[2022-06-28 15:04] LABS: NT-proBNP (BNP-Adult 18+) 362 pg/mL (<125)
[2022-06-29 13:32] LABS: Osmolality Urine 202 mOsmol/kg (.)
[2022-07-02 19:10] LABS: Osmolality, Serum 284 mOsmol/kg (275-295)
[2022-07-05 14:11] LABS: Alanine Aminotransferase 39 IU/L (<35); Albumin 4.2 g/dL (3.5-5.0); Albumin Globulin Ratio 1.7 (1.0-2.8); Alkaline Phosphatase 122 U/L (38-126); Aspartate Aminotransferase 37 IU/L (14-36); BUN Creatinine Ratio 17.3 (6-22); Bilirubin Total 0.8 mg/dL (0.2-1.3); Blood Urea Nitrogen 14 mg/dL (7-17); Calcium 8.8 mg/dL (8.4-10.2); Carbon Dioxide 31 mmol/L (22-32); Chloride 99 mmol/L (98-107); Estimated Glomerular Filt Rate > 60 mL/min (>60); Globulin 2.5 g/dL (1.7-4.1); Glucose 87 mg/dL (80-110); HEMOLYSIS < 15 (0-50); Potassium 4.3 mmol/L (3.4-5.1); Sodium 138 mmol/L (137-145); Total Protein 6.7 g/dL (6.3-8.2)
[2022-07-17 10:07] LABS: Epstein-Barr Anti R/D 86.2
== END ==
PROVIDERS: Family Provider Naturopath; PCP Family Medicine; Referring Provider Naturopath; Visit Provider Naturopath
DX: G47.00 Insomnia, unspecified (principal); R76.8 Other specified abnormal immunological findings in serum; R53.82 Chronic fatigue, unspecified; E87.8 Other disorders of electrolyte and fluid balance, not elsewhere classified
CPT/HCPCS: 36415; 80053; 83880; 83930; 83935; 84550; 85025; 86663

== ENCOUNTER → 2022-07-13 10:16 | Outpatient (CLI) | payer OTHER, SELFPAY | PROVIDERS: Family Provider Naturopath; PCP Naturopath; Referring Provider Family Medicine; Visit Provider Family Medicine | DX: M85.852 Other specified disorders of bone density and structure, left thigh (principal); Z78.0 Asymptomatic menopausal state; Z13.820 Encounter for screening for osteoporosis | CPT/HCPCS: 77080 ==

== ENCOUNTER → 2023-01-01 15:36 | Outpatient (CLI) | payer OTHER, SELFPAY ==
[2023-01-01 16:32] LABS: Add Manual Diff / Slide Review NO; Basophils Absolute Auto 0 /uL (0-100); Basophils Percent Auto 0.5 % (0-2); Eosinophils Absolute Auto 0 /uL (0-450); Eosinophils Percent Auto 0.6 % (2-4); Hemoglobin 13.3 g/dL (12.0-16.0); Lymphocytes Absolute Auto 800 /uL (1100-4500); Lymphocytes Percent Auto 26.9 % (25-40); Mean Corpuscular HGB Conc 34.2 % (30-36); Mean Corpuscular Hemoglobin 31.9 PG (26-34); Mean Corpuscular Volume 93.4 fL (80-100); Monocytes Absolute Auto 200 /uL (0-900); Monocytes Percent Auto 6.8 % (3-14); Neutrophils Absolute Auto 1900 /uL (1500-7000); Neutrophils Percent Auto 65.2 % (50-75); Platelet Count 159 X10^3/uL (150-400); Red Blood Cell Count 4.18 X10^6/uL (4.0-5.2); Red Cell Distribution Width 15.4 % (11.6-14.8); White Blood Cell Count 2.9 X10^3/uL (4.5-11.0)
[2023-01-01 17:26] LABS: Free T4, Direct Thyroxine 0.97 ng/dL (0.78-2.19)
[2023-01-01 17:40] LABS: Alanine Aminotransferase 32 IU/L (<35); Albumin 4.1 g/dL (3.5-5.0); Albumin Globulin Ratio 1.4 (1.0-2.8); Alkaline Phosphatase 117 U/L (38-126); Aspartate Aminotransferase 34 IU/L (14-36); BUN Creatinine Ratio 19.7 (6-22); Bilirubin Total 0.9 mg/dL (0.2-1.3); Blood Urea Nitrogen 15 mg/dL (7-17); Calcium 8.5 mg/dL (8.4-10.2); Carbon Dioxide 29 mmol/L (22-32); Chloride 100 mmol/L (98-107); Cholesterol 203 mg/dL (140-199); Estimated Glomerular Filt Rate > 60 mL/min (>60); Globulin 2.9 g/dL (1.7-4.1); Glucose 77 mg/dL (80-110); HDL Cholesterol 81 mg/dL (40-60); HEMOLYSIS < 15 (0-50); LDL Cholesterol Calculated 110 mg/dL (<100); Potassium 3.9 mmol/L (3.4-5.1); Sodium 134 mmol/L (137-145); Thyroid Stimulating Hormone 3.14 uIU/mL (0.47-4.68); Triglycerides 58 mg/dL (35-150)
[2023-01-01 18:14] LABS: Ferritin 21 ng/mL (11-264)
[2023-01-02 07:10] LABS: Thyroid Peroxidase Antibodies 29 IU/mL (0-34)
== END ==
PROVIDERS: Family Provider Naturopath; PCP Family Medicine; Referring Provider Family Medicine; Visit Provider Family Medicine
DX: D75.89 Other specified diseases of blood and blood-forming organs (principal); I10 Essential (primary) hypertension; E03.9 Hypothyroidism, unspecified; E06.3 Autoimmune thyroiditis
CPT/HCPCS: 36415; 80053; 80061; 82728; 84439; 84443; 84481; 85025; 86376

== ENCOUNTER → 2023-02-16 10:47 | Outpatient (CLI) | payer OTHER, SELFPAY ==
--- NOTE | 2023-02-16 10:49 | DI.MG.S_ITS ---
BILATERAL DIGITAL SCREENING MAMMOGRAM 3D/2D WITH CAD: 02/16/2023 CLINICAL: Routine screening. Family history of breast cancer. Comparison is made to exams dated: 02/15/2022 mammogram - [facility], 02/14/2021 mammogram - [facility], and 03/12/2020 mammogram - [facility]. There are scattered areas of fibroglandular density in both breasts (category b / 25%-50% glandular tissue). Current study was also evaluated with a Computer Aided Detection (CAD) system. There is a possible developing oval asymmetry in the left breast middle depth superior region seen on the mediolateral oblique view only. This is more prominent. No other significant masses, calcifications, or other findings are seen in either breast. IMPRESSION: INCOMPLETE: NEEDS ADDITIONAL IMAGING EVALUATION The possible developing oval asymmetry in the left breast is indeterminate. Additional views with possible ultrasound are recommended. Based on the Tyrer Cuzick model (a risk assessment model) the patient's lifetime risk is 7.3% and her 10 year risk is 3.0%. According to the ACR, ACS, and NCCN guidelines, an annual breast MRI exam along with mammogram is recommended if the patient's lifetime risk is 20% or greater. This exam was interpreted at Station ID: [id number]. NOTE: For mammograms, a report in lay terms will be sent to the patient. Approximately 15% of breast malignancies will not be visualized mammographically. In the management of a palpable breast mass, a negative mammogram must not discourage biopsy of a clinically suspicious lesion. Electronically Signed By: Marvin parra/malu:02/18/2023 07:41:07 letter sent: Additional Imaging Needed ACR BI-RADS Category 0: Incomplete 3340F
== END ==
PROVIDERS: Family Provider Naturopath; PCP Family Medicine; Referring Provider Family Medicine; Visit Provider Family Medicine
DX: Z12.31 Encounter for screening mammogram for malignant neoplasm of breast (principal); Z80.3 Family history of malignant neoplasm of breast
CPT/HCPCS: 77063; 77067

== ENCOUNTER → 2023-03-11 12:01 | Outpatient (CLI) | payer OTHER, SELFPAY ==
--- NOTE | 2023-03-11 | DI.MG.S_ITS ---
UNILATERAL LEFT DIGITAL DIAGNOSTIC MAMMOGRAM 3D/2D WITH ADDITIONAL VIEWS: 03/11/2023 CLINICAL: Additional evaluation requested from prior study. Comparison is made to exams dated: 02/16/2023 mammogram, 02/15/2022 mammogram - [facility], and 02/14/2021 mammogram - [facility]. There are scattered areas of fibroglandular density in the left breast (category b / 25%-50% glandular tissue). There is a possible oval asymmetry in the left breast middle depth superior region seen on the mediolateral oblique view only. This is less prominent. No other significant masses or calcifications are seen in the breast. IMPRESSION: INCOMPLETE: NEEDS ADDITIONAL IMAGING EVALUATION The possible oval asymmetry in the left breast is indeterminate. An ultrasound is recommended. Based on the Tyrer Cuzick model (a risk assessment model) the patient's lifetime risk is 7.3% and her 10 year risk is 3.0%. According to the ACR, ACS, and NCCN guidelines, an annual breast MRI exam along with mammogram is recommended if the patient's lifetime risk is 20% or greater. This exam was interpreted at Station ID: [id number]. NOTE: For mammograms, a report in lay terms will be sent to the patient. Approximately 15% of breast malignancies will not be visualized mammographically. In the management of a palpable breast mass, a negative mammogram must not discourage biopsy of a clinically suspicious lesion. Electronically Signed By: Bruce Newton M.D. lc/:03/11/2023 12:53:03 ACR BI-RADS Category 0: Incomplete 3340F
--- NOTE | 2023-03-11 12:02 | DI.US.S_ITS ---
ULTRASOUND OF LEFT BREAST: 03/11/2023 CLINICAL: Patient returns today to evaluate a focal asymmetry in the left breast. Comparison is made to exams dated: 02/16/2023 mammogram, 03/11/2023 mammogram, 02/15/2022 mammogram - [facility], 02/14/2021 mammogram - [facility], 03/12/2020 mammogram - [facility], and 02/26/2019 mammogram - [facility] [place]. Real-time ultrasound of the left breast was performed. Hinson scale images of the real-time examination were reviewed. No significant abnormalities were seen sonographically in the left breast. IMPRESSION: NEGATIVE There is no sonographic evidence of malignancy. There are no abnormalities seen in the left breast to correspond with the mammography finding. 1, 11, and 12 o'clock were imaged. Return to annual mammogram screening schedule is recommended. This exam was interpreted at Station ID: [id number]. Electronically Signed By: Bruce Newton M.D. lc/:03/11/2023 12:54:01 letter sent: Normal Exam Ultrasound BI-RADS: 1 Negative
== END ==
PROVIDERS: Family Provider Naturopath; PCP Family Medicine; Referring Provider Family Medicine; Visit Provider Family Medicine
DX: R92.8 Other abnormal and inconclusive findings on diagnostic imaging of breast (principal)
CPT/HCPCS: 76642; 77065; G0279

== ENCOUNTER → 2023-10-30 09:45 | Outpatient (CLI) | payer OTHER, SELFPAY ==
[2023-10-30 13:16] LABS: Urine Volume 10mL (spun)
[2023-10-30 13:17] LABS: Bacteria Urine None Seen; Culture Indicated Urine Cult Not Indicated; RBC Urine None Seen (0-5/HPF); Squamous Epithelial Cell Urine 0-1 /HPF (0-5/HPF); WBC Urine 0-1/HPF (0-5/HPF)
== END ==
PROVIDERS: Family Provider Naturopath; PCP Family Medicine; Visit Provider Family Medicine
DX: R39.9 Unspecified symptoms and signs involving the genitourinary system (principal)
CPT/HCPCS: 81015

== ENCOUNTER → 2024-01-07 15:36 | Outpatient (CLI) | payer OTHER, SELFPAY ==
[2024-01-07 17:41] LABS: Add Manual Diff / Slide Review NO; Basophils Absolute Auto 0 /uL (0-100); Basophils Percent Auto 0.6 % (0-2); Eosinophils Absolute Auto 100 /uL (0-450); Eosinophils Percent Auto 2.6 % (2-4); Hematocrit 41.2 % (36-46); Hemoglobin 13.7 g/dL (12.0-16.0); Lymphocytes Absolute Auto 1200 /uL (1100-4500); Mean Corpuscular HGB Conc 33.3 % (30-36); Mean Corpuscular Volume 96.1 fL (80-100); Monocytes Absolute Auto 200 /uL (0-900); Monocytes Percent Auto 4.7 % (3-14); Neutrophils Absolute Auto 3000 /uL (1500-7000); Neutrophils Percent Auto 66.1 % (50-75); Platelet Count 165 X10^3/uL (150-400); Red Blood Cell Count 4.29 X10^6/uL (4.0-5.2); White Blood Cell Count 4.5 X10^3/uL (4.5-11.0)
[2024-01-07 17:54] LABS: Alanine Aminotransferase 20 IU/L (<35); Albumin 4.1 g/dL (3.5-5.0); Albumin Globulin Ratio 1.8 (1.0-2.8); Alkaline Phosphatase 86 U/L (38-126); Aspartate Aminotransferase 28 IU/L (14-36); BUN Creatinine Ratio 25.6 (6-22); Bilirubin Total 0.8 mg/dL (0.2-1.3); Blood Urea Nitrogen 21 mg/dL (7-17); Calcium 8.6 mg/dL (8.4-10.2); Carbon Dioxide 29 mmol/L (22-32); Chloride 104 mmol/L (98-107); Estimated Glomerular Filt Rate > 60 mL/min (>60); Globulin 2.3 g/dL (1.7-4.1); Glucose 67 mg/dL (80-110); HEMOLYSIS < 15 (0-50); Potassium 4.1 mmol/L (3.4-5.1); Sodium 136 mmol/L (137-145); Total Protein 6.4 g/dL (6.3-8.2)
[2024-01-07 18:10] LABS: Vitamin D 25 Hydroxy (D3) 76.8 ng/mL (30.0-100.0)
[2024-01-07 18:29] LABS: Ferritin 40 ng/mL (11-264)
[2024-01-07 18:31] LABS: Free T3, Triiodothyronine Free 3.95 pg/mL (2.77-5.27)
[2024-01-07 18:44] LABS: Thyroid Stimulating Hormone 1.77 uIU/mL (0.47-4.68)
[2024-01-07 20:00] LABS: Appearance Urine UA CLEAR; Bilirubin Urine UA NEGATIVE (NEGATIVE); Color Urine UA YELLOW; Glucose Urine UA NEGATIVE (Negative); Ketones Urine UA 1+ (NEGATIVE); Leukocyte Esterase Urine UA TRACE (NEGATIVE); Nitrite Urine UA NEGATIVE (Negative); Occult Blood Urine UA 1+ (Negative); Protein Urine UA NEGATIVE (Negative); Urobilinogen Urine UA 0.2 E.U./dL (0.2)
[2024-01-07 20:52] LABS: Bacteria Urine None Seen; RBC Urine 0-1/HPF (0-5/HPF); Squamous Epithelial Cell Urine None Seen (0-5/HPF); Urine Volume 10mL (spun); WBC Urine None Seen (0-5/HPF)
[2024-01-07 20:53] LABS: Culture Indicated Urine Cult Not Indicated
== END ==
PROVIDERS: Family Provider Naturopath; PCP Family Medicine; Referring Provider Family Medicine; Visit Provider Family Medicine
DX: E03.9 Hypothyroidism, unspecified (principal); E06.3 Autoimmune thyroiditis; Z00.00 Encounter for general adult medical examination without abnormal findings; Z86.2 Personal history of diseases of the blood and blood-forming organs and certain disorders involving the immune mechanism; R53.83 Other fatigue; R30.0 Dysuria; R10.32 Left lower quadrant pain
CPT/HCPCS: 36415; 80053; 81001; 82306; 82728; 84439; 84443; 84481; 85025

== ENCOUNTER 2024-01-08 19:34 | Emergency (ER) | payer OTHER, SELFPAY ==
[2024-01-08 19:37] VITALS: BP 187/87; PULSE 57; RESP 18; TEMP 36.7; O2SAT 96; BMI 22.3
--- NOTE | 2024-01-08 20:36 | ED_ITS ---
HPI - Wound/Laceration General Chief Complaint: Wound/Laceration Stated Complaint: hand laceration Time Seen by Provider: 01/08/24 20:23 Source: patient Mode of arrival: Ambulatory History of Present Illness HPI narrative: 63-year-old female presents for evaluation of fingertip laceration. Patient was slicing vegetables with a mandolin and her finger slipped. She presents for evaluation. States that she is up-to-date on her tetanus vaccinations. Related Data Home Medications Medication Instructions Recorded Confirmed carditone 1 tab PO DAILY 01/24/21 10/30/23 Lactobacillus 40-Bifidobact 1 cap PO DAILY 08/31/21 10/30/23 3-S.thermophilus 100 billion cell capsule (Probiotic) magnesium malate + glycinate + PO 10/19/22 10/30/23 citrate cholecalciferol (vitamin D3) 125 125 mcg PO DAILY 01/07/23 10/30/23 mcg (5,000 unit) tablet (Vitamin D3) ferrous sulfate 250 mg (50 mg 250 mg PO DAILY 01/07/23 10/30/23 iron) tablet,extended release selenium 200 mcg tablet 200 mcg PO DAILY 01/07/23 10/30/23 turmeric 100 mg-otis 150 cap PO 01/07/23 10/30/23 mg-olive 50 mg-oreg 150 mg-capryl capsule ubidecarenone-omega 3-vit E 25 1 cap PO DAILY 01/07/23 10/30/23 mg-150 (90-60) mg-200 unit capsule (Co L-20-Jjuzfzd E-Fish Oil) zinc acetate 25 mg (zinc) capsule 25 mg PO DAILY 01/07/23 10/30/23 (Wilzin) Previous Rx's Medication Instructions Recorded Low dose Naltrexone (LDN) 2 mg PO DAILY #90 caps 05/08/23 thyroid (pork) 30 mg tablet ([employer] 30 mg PO 2XW #24 tabs 12/17/23 Thyroid) thyroid (pork) 60 mg tablet ([employer] 60 mg PO 5XW #60 tabs 12/17/23 Thyroid) Allergies Allergy/AdvReac Type Severity Reaction Status Date / Time gabapentin AdvReac Intermediate Anxiety Verified 01/07/23 15:22 and flushing losartan AdvReac Intermediate numbness Verified 01/07/23 15:22 and tingling of entire body metoprolol AdvReac Intermediate feet turn Verified 01/07/23 15:22 white and feel hot valacyclovir AdvReac Intermediate macrocytosi Verified 01/07/23 15:22 s Patient History Medical History Unsatisfactory cervical cytology smear Foot callus Osteopenia after menopause Rosacea (~2018) Hypothyroidism (~2018) Elevated BP without diagnosis of hypertension Family history of heart disease History of anemia Juan Manuel's disease Surgical History Anesthesia History of breast surgery (~2007) Family History Father History of heart attack Social History Smoking Status: Never smoker Smoking Status: Never smoker alcohol intake frequency: holidays/special occasions only Substance Use Type: does not use Exam Initial Vital Signs Initial Vital Signs: Vital Signs Temperature 98.1 F 01/08/24 19:37 Pulse Rate 57 L 01/08/24 19:37 Respiratory Rate 18 01/08/24 19:37 Blood Pressure 187/87 H 01/08/24 19:37 Pulse Oximetry 96 01/08/24 19:37 Oxygen Delivery Method Room Air 01/08/24 19:37 Const: Awake, alert, no acute distress, nontoxic appearing MSK: Distal right fingertip laceration Skin: Warm, Dry, avulsion flap injury of right index fingertip Neuro: AO x3, CN II-XII grossly intact, moves all extremities Course Vital Signs Vital signs: Vital Signs - 8 hr 01/08/24 19:37 Temperature 98.1 F Pulse Rate 57 L Respiratory Rate 18 Blood Pressure 187/87 H Pulse Oximetry 96 Oxygen Delivery Method Room Air MDM - Wound/Laceration MDM Narrative Medical decision making narrative: Mandolin injury to right index finger. There is a flap avulsion injury to the distal palmar tip of the finger. Unfortunately the avulsed flap is completely white with no evidence of any blood flow. Patient counseled that sutures are of little benefit as the avulsed tip we will likely scab and fall off. Wound irrigated by nursing staff and clean dressing applied. Avulsed flap left in place to provide skin cover. Patient counseled on wound care precautions. Discharge Plan Departure Patient Disposition: Home Clinical Impression: Finger laceration Instructions: DI for Minor Laceration Activity Restrictions/Additional Instructions: The fingertip laceration that you have would not benefit from sutures. The blanching, or whiteness of the fingertip means that the blood flow has been disrupted enough that it will scab off. Keep the wound clean and dry. The skin has been left on top of the wound to help prevent infection and to help with pain. Elevate your finger to decrease swelling and pain. Take Tylenol and ibuprofen as needed for discomfort. Prescriptions: No Action magnesium malate + glycinate + citrate 300 mg tablet PO Low dose Naltrexone (LDN) 2 mg capsule 2 mg PO DAILY Qty: 90 3RF thyroid (pork) [[employer] Thyroid] 30 mg tablet 30 mg PO 2XW Qty: 24 3RF Rx Instructions: take for 2 days of the week, take 60mg [employer] Thyroid all other days thyroid (pork) [[employer] Thyroid] 60 mg tablet 60 mg PO 5XW Qty: 60 3RF carditone 1 tab PO DAILY cholecalciferol (vitamin D3) [Vitamin D3] 125 mcg (5,000 unit) tablet 125 mcg PO DAILY Wilzin 25 mg (zinc) capsule 25 mg PO DAILY selenium 200 mcg tablet 200 mcg PO DAILY ferrous sulfate 250 mg (50 mg iron) tablet extended release 250 mg PO DAILY ljnruxmr-hkgw-vleaz-oreg-capry 100 mg-150 mg- 50 mg-150 mg capsule PO Co [id number]-Kpyoebn E-Fish Oil 25-150-200 mg-mg-unit capsule 1 cap PO DAILY Probiotic 100 billion cell Capsule 1 cap PO DAILY Referrals: Fay Mccormick DO [Primary Care Provider] - Stand Alone Forms: Patient Portal/API
--- NOTE | 2024-01-08 20:50 | PC.NURSE ---
Cleansed right index finger with normal saline and dressed with xeroform and kerlix gauze. Bleeding controlled.
== END 2024-01-08 21:03 | disposition home or self-care (01) ==
PROVIDERS: Emergency Provider Emergency Medicine; Family Provider Naturopath; PCP Family Medicine
DX: S61.210A Laceration without foreign body of right index finger without damage to nail, initial encounter (principal); W26.8XXA Contact with other sharp object(s), not elsewhere classified, initial encounter
CPT/HCPCS: 99282

== ENCOUNTER → 2024-01-10 09:58 | Outpatient (CLI) | payer OTHER, SELFPAY ==
[2024-01-10 12:48] LABS: Cholesterol 179 mg/dL (140-199); HDL Cholesterol 76 mg/dL (40-60); LDL Cholesterol Calculated 92 mg/dL (<100); Triglycerides 53 mg/dL (35-150)
== END ==
PROVIDERS: Family Provider Naturopath; PCP Family Medicine; Referring Provider Family Medicine; Visit Provider Family Medicine
DX: Z13.6 Encounter for screening for cardiovascular disorders (principal); Z79.899 Other long term (current) drug therapy
CPT/HCPCS: 36415; 80061

== ENCOUNTER → 2024-02-20 10:05 | Outpatient (CLI) | payer BC, SELFPAY ==
--- NOTE | 2024-02-20 10:06 | DI.MG.S_ITS ---
BILATERAL DIGITAL SCREENING MAMMOGRAM 3D/2D WITH CAD: 02/20/2024 CLINICAL: Routine screening. Family history of breast cancer. Comparison is made to exams dated: 02/16/2023 mammogram - [facility], 02/14/2021 mammogram - [facility], 02/15/2022 mammogram, and 03/11/2023 mammogram - [facility]. There are scattered areas of fibroglandular density in both breasts (category b / 25%-50% glandular tissue). Current study was also evaluated with a Computer Aided Detection (CAD) system. There are benign post operative findings in the right breast. No significant masses, calcifications, or other findings are seen in either breast. There has been no significant interval change. IMPRESSION: BENIGN There is no mammographic evidence of malignancy. A 1 year screening mammogram is recommended. Based on the Tyrer Cuzick model (a risk assessment model) the patient's lifetime risk is 7.1% and her 10 year risk is 3.1%. According to the ACR, ACS, and NCCN guidelines, an annual breast MRI exam along with mammogram is recommended if the patient's lifetime risk is 20% or greater. This exam was interpreted at Station ID: [id number]. NOTE: For mammograms, a report in lay terms will be sent to the patient. Approximately 15% of breast malignancies will not be visualized mammographically. In the management of a palpable breast mass, a negative mammogram must not discourage biopsy of a clinically suspicious lesion. Electronically Signed By: Mino trivedi/malu:02/20/2024 12:16:43 letter sent: Normal Exam ACR BI-RADS Category 2: Benign Finding(s) 3342F
== END ==
PROVIDERS: Family Provider Naturopath; PCP Family Medicine; Referring Provider Family Medicine; Visit Provider Family Medicine
DX: Z12.31 Encounter for screening mammogram for malignant neoplasm of breast (principal); R92.323 Mammographic fibroglandular density, bilateral breasts; Z80.3 Family history of malignant neoplasm of breast
CPT/HCPCS: 77063; 77067

== ENCOUNTER 2024-12-28 09:00 | Outpatient (RCR) | payer BC, SELFPAY ==
--- NOTE | 2024-12-07 14:30 | PT.OIE ---
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) Anesthesia of skin (12/07/24) Paresthesia of skin (12/07/24) Past Medical History (Last Updated 12/01/24 @ 16:05 by Fay Mccormick DO) Elevated BP without diagnosis of hypertension Family history of heart disease Foot callus Juan Manuel's disease (~2018) History of anemia LLQ abdominal pain Osteopenia after menopause Rosacea (~2018) Unsatisfactory cervical cytology smear Past Surgical History (Last Reviewed 01/10/24 @ 01:32 by Becky Davis MD) Anesthesia History of breast surgery (~2007) Visit Care Team Role Provider Type Fay Mccormick DO Attending Provider Physician Family Provider Primary Care Provider Referring Provider Specialty: Medical Address: [address] [place] [address], [address], [address] Email: [email or web address] Physical Therapy Initial Evaluation PT-OP-A Visit Information Start: 12/07/24 07:28 Freq: Status: Active Protocol: Document 12/07/24 07:30 LRN (Rec: 12/07/24 08:19 LRN Laptop) Out-Patient Physical Therapy Visit Information Visit Information Visit Type Initial Evaluation Visit Start Time 07:30 Visit Stop Time 08:18 Visit Number 1 Evaluation Information Evaluation Date 12/07/24 Precautions Precautions Thyroid, Osteopenia, Had precancer cells of R breast removed - 2009, blood pressure now controlled, LBP. PT-OP-B Current Condition Start: 12/07/24 07:28 Freq: Status: Active Protocol: Document 12/07/24 07:30 LRN (Rec: 12/07/24 08:19 LRN Laptop) Current Condition History of Current Condition Onset Date Recent onset is October 2024. Current Complaints Achy lower abdomen and vagina pain. History of Current Since 2021, off/on has achy sensation in lower abdomen Condition and vagina, lasting a couple weeks or longer then goes away for a couple of months. This recent onset episode started in October 2024. Last night for the first time took IBP and found it helpful. Very first time started after having massage, also had feet sensation problems (no longer has feet problems). Pt dx: Volvodynia and parasthesia of the skin. Hasn't been tested for infection, but previous episode was found to be negative. She thinks it may be because of her thoughts or things on TV may trigger a feeling of arousal. Not sexually active, since 2019. Now when she thinks of her achiness, it makes the feeling worse, or brings it on. Has found working in the garden ( pulling weeds in an acre plot, bending a lot) the pain goes away. Every now and then after eating has a stomach ache and then diarrhea. Prior Treatments and Last chiropractic treatment was 2022 in [facility]. Tests IBP. Developmental History Developmental 1G/1P, of vaginal w/o complications. Pt is post- History [place]. Treatment Goals Patient/Caregiver Pt goals: Goals - Be able to watch movies w/o onset of achiness in the lower abdomen and vagina. - Reduce or eliminate the achiness in the lower abdomen and vagina. - Pt will be independent in a self care program to prevent or reduce onset of pain. 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 Sleeps ok using heat/ ice packs Frequency Comes/goes in months Pain Aggravating Sitting Factors Other Pain Watching TV, thinking about the pain. Aggravating Factors Pain Alleviating Medication Factors Other Pain IBP Alleviating Factors PT-OP-I Pelvic Floor Start: 12/07/24 07:28 Freq: Status: Active Protocol: Document 12/07/24 07:30 LRN (Rec: 12/07/24 08:19 LRN Laptop) Pelvic Floor Assessment Bowel Other Bowel Symptoms Occasional diarrhea after eating. Pelvic Clock Pelvic Clock 12-3 Tenderness Pelvic Clock 3-6 Tenderness Pelvic Clock 6-9 Tenderness Pelvic Clock 9-12 Tenderness Contraction Ability Voluntary Weak Contraction Voluntary Relaxation Weak Manual Muscle 2 Testing Left Manual Muscle 2 Testing Right Manual Muscle 2 Testing Anterior Manual Muscle 3 Testing Posterior Muscle Endurance ( 10 Seconds) Number of Quick 3 Contractions In 10 Seconds Comments Pelvic Floor Pt denies bowel or bladder problems but admits that Comments sometimes after eating she has a stomach ache and then diahrrea. Contractions: slow to release, uses substitute muscles (gluteals and abdomen). PF tissues: Dry, light pink, small vaginal opening. PT-OP-J Posture/Palpation/Skin Start: 12/07/24 07:28 Freq: Status: Active Protocol: Document 12/07/24 07:30 LRN (Rec: 12/07/24 08:19 LRN Laptop) Posture Evaluation Position Standing Head/C-Spine Posture Side Bent Right,C-Spine Flattened,Forward Head T-Spine Posture Increased Kyphosis L-Spine Posture Increased Lordosis,Shifted Left Shoulder Posture (R) Elevated Scapula Posture (R) Protracted,(L) Retracted,(R) Rotated Up,(L) Depressed Pelvis Posture Anteriorly Tilted Knee Posture (L) Genu Valgus,(R) Genu Valgus Foot Arch (L) High Arch,(R) High Arch Comments Posture Comments Mild valgus of knees, valgus of big toes, flexed elbows , R fingers curled, slight AB thumbs. Palpation Assessment Location Abdomen Palpation Location Lower abdomen Palpation Findings Soft Tissue Tightness Palpation Details No abdominal pain with palpation. Tight on L side of lower abdomen. PT-OP-K Range of Motion Start: 12/07/24 07:28 Freq: Status: Active Protocol: Document 12/07/24 07:30 LRN (Rec: 12/07/24 08:19 LRN Laptop) Lumbar Spine Range of Motion Lumbar Spine Active Degrees Testing Position Standing Flexion 73 Hip Goniometric Range of Motion Hip Left Passive Testing Position Supine Abduction 30 Internal Rotation 20 External Rotation 50 Right Passive Testing Position Supine Abduction 40 Internal Rotation 39 External Rotation 55 PT-OP-M Strength Start: 12/07/24 07:28 Freq: Status: Active Protocol: Document 12/07/24 07:30 LRN (Rec: 12/07/24 08:19 LRN Laptop) Trunk Strength Trunk Manual Muscle Testing Core Stabilization Loss of core rotational strength with hip ext MMT. Hip Strength Hip Manual Muscle Testing Right External Rotation 5 Normal Internal Rotation 4+ Good+ Left External Rotation 4+ Good+ Internal Rotation 4+ Good+ PT-OP-Q Treatments Start: 12/07/24 07:28 Freq: Status: Active Protocol: Document 12/07/24 07:30 LRN (Rec: 12/07/24 11:26 LRN Laptop) Self-Care/Home Management Treatment Education Other Education Discussed results of evaluation, goals, treatment, and plan of care (POC) with pt; pt agreeable to evaluation, goals, treatment and POC. Discussed and educated pt in specifics for completion of in use of Bladder Diary and I/S in tracking for 1 week. Activities Self-Care/Home Issued bladder diary. Management Activities PT-OP-T Assessment and Plan Start: 12/07/24 07:28 Freq: Status: Active Protocol: Document 12/07/24 07:30 LRN (Rec: 12/07/24 08:19 LRN Laptop) Physical Therapy Assessment Rehab Potential Rehabilitation Good Potential Evaluation Complexity Number of Personal 1-2 Factors/ Comorbidities Number of Body 4 or More Systems Impaired Clinical Evolving Presentation at Evaluation Impairments Impairments Activity Tolerance,Pain,Posture,ROM,Soft Tissue Mobility,Strength Goals Three Impairment Vaginal achiness/pain (PUF score 8 Short Term Goal (STG Reduce PUF score. ) STG Duration 01/18/25 Correction Goal (LTG) Pt will be able to use relaxation techniques ( mindfulness, deep breathing) to reduce achiness in the lower abdomen and vagina when feeling stressed and focusing on her areas of achiness/pain. LTG Duration 03/01/25 Two Impairment Lower abdominal achiness/pain rated 3/10 Short Term Goal (STG Pt will be educated in use of MH/cryotherapy to reduce ) pain with onset. Hand Tapper Goal (LTG) Pt will be able to watch movies w/o onset of achiness in the lower abdomen. LTG Duration 03/01/25 One Impairment Pt lacks an independent self care HEP. Short Term Goal (STG Pt will be educated in self STM (abdomen, PF) to reduce ) or eliminate trigger point pain. STG Duration 01/18/25 Correction Goal (LTG) Pt will be independent in a self nursing home program of hip/trunk mobility and strengthening, to reduce and prevent onset of lower abdominal and pelvic floor pain. LTG Duration 03/01/25 Assessment Summary Assessment Pt is a 64 yo female with vulvadynia and lower abdominal achines. She has PF dryness, tenderness, & achiness around the PF clock, and achiness/L tightness of the lower abdomen. The PF is slow to relax after a contraction and appears to have a cognitive connection as she has more tenderness when she thinks about the area or with prolonged sitting/watching TV. The pt will benefit from skilled physical therapy of muscle re -education, STM, visceral mob, abdominal MFR, JMT, dilators education/use, perineal massage. The pt would benefit from referral back for treatment to reduce her PF dryness and improve her PF tissue health. Physical Therapy Plan Frequency and Duration Frequency of 1x/Week Treatment Duration of 12 treatment (weeks) Plan of Care Start 12/07/24 Date Plan of Care End 03/01/25 Date Therapeutic Interventions Therapeutic Home Exercise Program,Joint Mobilizations,Manual Interventions Therapy,Neuromuscular Re-education,Self-Care/Home Management,Soft Tissue Mobilization,Therapeutic Activities,Therapeutic Exercises Modalities Biofeedback,Electric Stimulation Next Visit Focus/Plan Next Note Type Treatment Note Next Visit Plan Complete lumbar AROM/strength assessment & hip strength . Review bladder diary, discuss fluid intake (AM/PM), norms for fluid management, times between voids and voiding times, fluid intake & types of fluids, bladder irritants, norms for bowel movements (frequency and types). Manual/dilator to PF for self care TrP release . Pt educ in use of modalities for pain. POC: Manual visceral mob lower abdomen & trP STM, Perineal massage. Education: deep breathing and isolated PF contractions. Biofeedback for PF ms relaxation awareness after contraction, Therapeutic Exercises, posture-JMT, Neuromuscular Reeducation (deep breathing, mindfulness).
--- NOTE | 2024-12-22 08:43 | PT.OTN ---
Current Diagnoses Other vulvodynia (12/22/24) Anesthesia of skin (12/22/24) Paresthesia of skin (12/22/24) Physical Therapy Treatment Note PT-OP-A Visit Information Start: 12/07/24 07:28 Freq: Status: Active Protocol: Document 12/22/24 07:33 LRN (Rec: 12/22/24 08:42 LRN Laptop) Out-Patient Physical Therapy Visit Information Visit Information Visit Type Treatment Note Visit Start Time 07:33 Visit Stop Time 08:20 Visit Number 2 Evaluation Information Evaluation Date 12/07/24 Precautions Precautions Thyroid, Osteopenia, Had precancer cells of R breast removed - 2009, blood pressure now controlled, LBP. PT-OP-B Current Condition Start: 12/07/24 07:28 Freq: Status: Active Protocol: Document 12/07/24 07:30 LRN (Rec: 12/07/24 08:19 LRN Laptop) Current Condition History of Current Condition Onset Date Recent onset is October 2024. Current Complaints Achy lower abdomen and vagina pain. History of Current Since 2021, off/on has achy sensation in lower abdomen Condition and vagina, lasting a couple weeks or longer then goes away for a couple of months. This recent onset episode started in October 2024. Last night for the first time took IBP and found it helpful. Very first time started after having massage, also had feet sensation problems (no longer has feet problems). Pt dx: Volvodynia and parasthesia of the skin. Hasn't been tested for infection, but previous episode was found to be negative. She thinks it may be because of her thoughts or things on TV may trigger a feeling of arousal. Not sexually active, since 2019. Now when she thinks of her achiness, it makes the feeling worse, or brings it on. Has found working in the garden ( pulling weeds in an acre plot, bending a lot) the pain goes away. Every now and then after eating has a stomach ache and then diarrhea. Prior Treatments and Last chiropractic treatment was 2022 in [facility]. Tests IBP. Developmental History Developmental 1G/1P, of vaginal w/o complications. Pt is post- History [place]. Treatment Goals Patient/Caregiver Pt goals: Goals - Be able to watch movies w/o onset of achiness in the lower abdomen and vagina. - Reduce or eliminate the achiness in the lower abdomen and vagina. - Pt will be independent in a self care program to prevent or reduce onset of pain. 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 When she eats she has a sudden stomach ache and then rushes to the bathroom with loose stool, then fine. After the eval she had aching in her bottom for 1 week. One night couldn't sleep and took IBP, but didn't help. For the past few days all her symptoms have gone away. Saw chiropractor x 2 (Dr. Fleming) and was told she had scoliosis. PT-OP-I Pelvic Floor Start: 12/07/24 07:28 Freq: Status: Active Protocol: Document 12/07/24 07:30 LRN (Rec: 12/07/24 08:19 LRN Laptop) Pelvic Floor Assessment Bowel Other Bowel Symptoms Occasional diarrhea after eating. Pelvic Clock Pelvic Clock 12-3 Tenderness Pelvic Clock 3-6 Tenderness Pelvic Clock 6-9 Tenderness Pelvic Clock 9-12 Tenderness Contraction Ability Voluntary Weak Contraction Voluntary Relaxation Weak Manual Muscle 2 Testing Left Manual Muscle 2 Testing Right Manual Muscle 2 Testing Anterior Manual Muscle 3 Testing Posterior Muscle Endurance ( 10 Seconds) Number of Quick 3 Contractions In 10 Seconds Comments Pelvic Floor Pt denies bowel or bladder problems but admits that Comments sometimes after eating she has a stomach ache and then diahrrea. Contractions: slow to release, uses substitute muscles (gluteals and abdomen). PF tissues: Dry, light pink, small vaginal opening. PT-OP-J Posture/Palpation/Skin Start: 12/07/24 07:28 Freq: Status: Active Protocol: Document 12/07/24 07:30 LRN (Rec: 12/07/24 08:19 LRN Laptop) Posture Evaluation Position Standing Head/C-Spine Posture Side Bent Right,C-Spine Flattened,Forward Head T-Spine Posture Increased Kyphosis L-Spine Posture Increased Lordosis,Shifted Left Shoulder Posture (R) Elevated Scapula Posture (R) Protracted,(L) Retracted,(R) Rotated Up,(L) Depressed Pelvis Posture Anteriorly Tilted Knee Posture (L) Genu Valgus,(R) Genu Valgus Foot Arch (L) High Arch,(R) High Arch Comments Posture Comments Mild valgus of knees, valgus of big toes, flexed elbows , R fingers curled, slight AB thumbs. Palpation Assessment Location Abdomen Palpation Location Lower abdomen Palpation Findings Soft Tissue Tightness Palpation Details No abdominal pain with palpation. Tight on L side of lower abdomen. PT-OP-K Range of Motion Start: 12/07/24 07:28 Freq: Status: Active Protocol: Document 12/07/24 07:30 LRN (Rec: 12/07/24 08:19 LRN Laptop) Lumbar Spine Range of Motion Lumbar Spine Active Degrees Testing Position Standing Flexion 73 Hip Goniometric Range of Motion Hip Left Passive Testing Position Supine Abduction 30 Internal Rotation 20 External Rotation 50 Right Passive Testing Position Supine Abduction 40 Internal Rotation 39 External Rotation 55 PT-OP-M Strength Start: 12/07/24 07:28 Freq: Status: Active Protocol: Document 12/22/24 07:33 LRN (Rec: 12/22/24 08:42 LRN Laptop) Hip Strength Hip Manual Muscle Testing Right Internal Rotation 4+ Good+ Comments Strength is 5/5 except as indicated above. Left External Rotation 4+ Good+ Internal Rotation 4+ Good+ Comments Strength is 5/5 except as indicated above. PT-OP-Q Treatments Start: 12/07/24 07:28 Freq: Status: Active Protocol: Document 12/22/24 07:33 LRN (Rec: 12/22/24 08:42 LRN Laptop) Therapeutic Exercises Supine Exercises R&R position Supine Exercise Name Rest & relax position, hips elevated w/inner thigh stretch (happy baby) Reps/Minutes 13' Deep breathing Reps/Minutes 5' Comments Cuing for awareness of body mvmt & proper breathing mechanics Prone Exercises JUSTIN stretch Reps/Minutes 6' Comments Extra time to determine max marion stretch & prevent LBP. Self-Care/Home Management Treatment Education Other Education Reviewed Bladder dairy and discussed fluid intake (AM/ PM), urinary voiding frequency, & nighttime voiding frequency, times between voids and voiding times, intake fluids (noted good), and bowel movement frequency (good with daily and types 3,4 BM's). Pt lead discussion on change in her health treatment ( added chiropractor and changing the sleep position to her sides), pt adding 3/4 in lift to L shoes, and discussed feeling of anxiousness and aching feet. Activities Self-Care/Home Issued & reviewed HEP: Deep breathing, JUSTIN, and Happy Management baby pose pic with written I/S of sup w/hips elevated Activities and stretch to inner thighs. PT-OP-T Assessment and Plan Start: 12/07/24 07:28 Freq: Status: Active Protocol: Document 12/22/24 07:33 LRN (Rec: 12/22/24 08:42 LRN Laptop) Physical Therapy Assessment Goals Three Impairment Vaginal achiness/pain (PUF score 8 Short Term Goal (STG Reduce PUF score. ) STG Duration 01/18/25 Billet Examiner Goal (LTG) Pt will be able to use relaxation techniques ( mindfulness, deep breathing) to reduce achiness in the lower abdomen and vagina when feeling stressed and focusing on her areas of achiness/pain. 12/22/24: Pt educated in deep breathing. LTG Duration 03/01/25 progressed 12/22/24 Two Impairment Lower abdominal achiness/pain rated 3/10 Short Term Goal (STG Pt will be educated in use of MH/cryotherapy to reduce ) pain with onset. Correction Goal (LTG) Pt will be able to watch movies w/o onset of achiness in the lower abdomen. LTG Duration 03/01/25 One Impairment Pt lacks an independent self care HEP. Short Term Goal (STG Pt will be educated in self STM (abdomen, PF) to reduce ) or eliminate trigger point pain. STG Duration 01/18/25 Correction Goal (LTG) Pt will be independent in a self [facility] program of hip/trunk mobility and strengthening, to reduce and prevent onset of lower abdominal and pelvic floor pain. 12/22/24: HEP: Deep breathing, JUSTIN and happy baby like pose with hips elevated for rest and relaxation and inner thigh stretching. LTG Duration 03/01/25 progressed 12/22/24 Assessment Summary Assessment Pt is a 64 yo female with vulvodynia and lower abdominal achiness, PF dryness, tenderness, & achiness around the PF clock, and achiness/L tightness of the lower abdomen. Per bladder diary review, pt is drinking normal amt of fluid, not urinating much in early afternoon/evening and ~2-4x /day voiding, probably worsening her abdominal achiness. Chiropractic appts appear to be lessening her pain. Hip strength is good, with slight weakness of hip ER and L IR. Pt tends to deep breath through chest and not diaphragm. Physical Therapy Plan Frequency and Duration Frequency of 1x/Week Treatment Duration of 12 treatment (weeks) Plan of Care Start 12/07/24 Date Plan of Care End 03/01/25 Date Next Visit Focus/Plan Next Note Type Treatment Note Next Visit Plan Review Deep breathing, and HEP. Complete lumbar AROM/ strength assessment. ?Manual/dilator to PF for self care TrP release if pt agrees (note 1 wk discomfort after initial eval). HEP inner thighs and abdomen. Manual stretch to inner thighs, abdomen and if agreeable PF (start externally). Pt educ in use of modalities for pain. POC: Manual visceral mob lower abdomen & trP STM, Perineal massage. Education: isolated PF contractions . Biofeedback for PF ms relaxation awareness after contraction, Therapeutic Exercises, posture-JMT, Neuromuscular Reeducation (deep breathing, mindfulness) .
--- NOTE | 2024-12-28 16:19 | PT.OTN ---
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 PT-OP-B Current Condition Start: 12/07/24 07:28 Freq: Status: Active Protocol: Document 12/07/24 07:30 LRN (Rec: 12/07/24 08:19 LRN Laptop) Current Condition History of Current Condition Onset Date Recent onset is October 2024. Current Complaints Achy lower abdomen and vagina pain. History of Current Since 2021, off/on has achy sensation in lower abdomen Condition and vagina, lasting a couple weeks or longer then goes away for a couple of months. This recent onset episode started in October 2024. Last night for the first time took IBP and found it helpful. Very first time started after having massage, also had feet sensation problems (no longer has feet problems). Pt dx: Volvodynia and parasthesia of the skin. Hasn't been tested for infection, but previous episode was found to be negative. She thinks it may be because of her thoughts or things on TV may trigger a feeling of arousal. Not sexually active, since 2019. Now when she thinks of her achiness, it makes the feeling worse, or brings it on. Has found working in the garden ( pulling weeds in an acre plot, bending a lot) the pain goes away. Every now and then after eating has a stomach ache and then diarrhea. Prior Treatments and Last chiropractic treatment was 2022 in [facility]. Tests IBP. Developmental History Developmental 1G/1P, of vaginal w/o complications. Pt is post- History [place]. Treatment Goals Patient/Caregiver Pt goals: Goals - Be able to watch movies w/o onset of achiness in the lower abdomen and vagina. - Reduce or eliminate the achiness in the lower abdomen and vagina. - Pt will be independent in a self care program to prevent or reduce onset of pain. 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 Has geen doing well. Feels 100% herself. Hasn't had had any issues in her groin since the last visit. States she want to talk to her doctor about her upset stomach, that happened once since last session. Chiropractor is being seen 1x/week (Dr. Fleming). Patient Questionnaires Pelvic Pain and Urgency/Frequency Patient Symptom Scale Pelvic Pain Score 3 PT-OP-I Pelvic Floor Start: 12/07/24 07:28 Freq: Status: Active Protocol: Document 12/07/24 07:30 LRN (Rec: 12/07/24 08:19 LRN Laptop) Pelvic Floor Assessment Bowel Other Bowel Symptoms Occasional diarrhea after eating. Pelvic Clock Pelvic Clock 12-3 Tenderness Pelvic Clock 3-6 Tenderness Pelvic Clock 6-9 Tenderness Pelvic Clock 9-12 Tenderness Contraction Ability Voluntary Weak Contraction Voluntary Relaxation Weak Manual Muscle 2 Testing Left Manual Muscle 2 Testing Right Manual Muscle 2 Testing Anterior Manual Muscle 3 Testing Posterior Muscle Endurance ( 10 Seconds) Number of Quick 3 Contractions In 10 Seconds Comments Pelvic Floor Pt denies bowel or bladder problems but admits that Comments sometimes after eating she has a stomach ache and then diahrrea. Contractions: slow to release, uses substitute muscles (gluteals and abdomen). PF tissues: Dry, light pink, small vaginal opening. PT-OP-J Posture/Palpation/Skin Start: 12/07/24 07:28 Freq: Status: Active Protocol: Document 12/07/24 07:30 LRN (Rec: 12/07/24 08:19 LRN Laptop) Posture Evaluation Position Standing Head/C-Spine Posture Side Bent Right,C-Spine Flattened,Forward Head T-Spine Posture Increased Kyphosis L-Spine Posture Increased Lordosis,Shifted Left Shoulder Posture (R) Elevated Scapula Posture (R) Protracted,(L) Retracted,(R) Rotated Up,(L) Depressed Pelvis Posture Anteriorly Tilted Knee Posture (L) Genu Valgus,(R) Genu Valgus Foot Arch (L) High Arch,(R) High Arch Comments Posture Comments Mild valgus of knees, valgus of big toes, flexed elbows , R fingers curled, slight AB thumbs. Palpation Assessment Location Abdomen Palpation Location Lower abdomen Palpation Findings Soft Tissue Tightness Palpation Details No abdominal pain with palpation. Tight on L side of lower abdomen. PT-OP-K Range of Motion Start: 12/07/24 07:28 Freq: Status: Active Protocol: Document 12/07/24 07:30 LRN (Rec: 12/07/24 08:19 LRN Laptop) Lumbar Spine Range of Motion Lumbar Spine Active Degrees Testing Position Standing Flexion 73 Hip Goniometric Range of Motion Hip Left Passive Testing Position Supine Abduction 30 Internal Rotation 20 External Rotation 50 Right Passive Testing Position Supine Abduction 40 Internal Rotation 39 External Rotation 55 PT-OP-M Strength Start: 12/07/24 07:28 Freq: Status: Active Protocol: Document 12/22/24 07:33 LRN (Rec: 12/22/24 08:42 LRN Laptop) Hip Strength Hip Manual Muscle Testing Right Internal Rotation 4+ Good+ Comments Strength is 5/5 except as indicated above. Left External Rotation 4+ Good+ Internal Rotation 4+ Good+ Comments Strength is 5/5 except as indicated above. PT-OP-Q Treatments Start: 12/07/24 07:28 Freq: Status: Active Protocol: Document 12/28/24 09:04 LRN (Rec: 12/28/24 09:53 LRN Laptop) Therapeutic Exercises Supine Exercises DKTC Reps/Minutes 1' Happy Baby Pose Reps/Minutes 10 SH x 10 Comments Extra time needed to determine best position and max stretch/hold R&R position Supine Exercise Name Rest & relax position, hips elevated w/inner thigh stretch (happy baby) Reps/Minutes 8' Prone Exercises Parrott arm/leg lift Prone Exercise Name HEP given today Side bilateral Reps/Minutes 5x JUSTIN stretch Prone Exercise Name HEP issued today Reps/Minutes 6' Comments Extra time to determine max marion stretch & prevent LBP. Self-Care/Home Management Treatment Education Other Education Pt lead discussion on why she might have intermittent pain in the lower lumbar region and tingling in PF. Discussed pt use her relaxation methods, use of modalities, and PF/hip stretching to help prevent onset of symptoms in the future. Activities Self-Care/Home Issued & Reviewed HEP: JUSTIN stretch, PRONE: single leg Management lift and opp arm/leg lift. Activities PT-OP-T Assessment and Plan Start: 12/07/24 07:28 Freq: Status: Active Protocol: Document 12/28/24 09:04 LRN (Rec: 12/28/24 09:53 LRN Laptop) Physical Therapy Assessment Goals Three Impairment Vaginal achiness/pain (PUF score 8) Short Term Goal (STG Reduce PUF score. ) 12/28/24: PUF score 3 STG Duration 01/18/25 (12/28/24: MET GOAL) Mcc Goal (LTG) Pt will be able to use relaxation techniques ( mindfulness, deep breathing) to reduce achiness in the lower abdomen and vagina when feeling stressed and focusing on her areas of achiness/pain. 12/22/24: Pt educated in deep breathing. 12/28/24: Tingling in lower abdomen and vaginal region is no longer present. After last session palp there was discomfort in bottom that hadn't happened before and is no longer having. LTG Duration 03/01/25 (12/28/24: MET GOAL) Two Impairment Lower abdominal achiness/pain rated 3/10 Short Term Goal (STG Pt will be educated in use of MH/cryotherapy to reduce ) pain with onset. 12/28/24: Long discussion of use of MH/cryotherapy to reduce pain with all of pt's devices at home (light heat therapy). STG Duration (12/28/24: MET GOAL) Mcc Goal (LTG) Pt will be able to watch movies w/o onset of achiness in the lower abdomen. LTG Duration 03/01/25 (12/28/24: MET GOAL) One Impairment Pt lacks an independent self care HEP. Short Term Goal (STG Pt will be educated in self STM (abdomen, PF) to reduce ) or eliminate trigger point pain. 12/28/24: Pt educated in abdominal relaxation & PF stretching. Trigger point treatment not needed; therefore not addressed. STG Duration 01/18/25 (12/28/24: MET GOAL) Pattern Data Operator Goal (LTG) Pt will be independent in a self senior care program of hip/trunk mobility and strengthening, to reduce and prevent onset of lower abdominal and pelvic floor pain. 12/22/24: HEP: Deep breathing, JUSTIN and happy baby like pose with hips elevated for rest and relaxation and inner thigh stretching. 12/28/24: HEP: JUSTIN abdominal stretch, LB strengthening: hips on pillow for leg lifts & alternate arm/leg lifts; pain mgmt with RICE handout. LTG Duration 03/01/25 (12/28/24: MET GOAL) Assessment Summary Assessment Pt is a 64 yo female with resolution of her complaints of vulvodynia and lower abdominal achiness & tenderness . She has had vulvodynia & achiness around the PF clock when stretched, but at this time feels she is ready for discharge from physical therapy because she has no interest in stretching her pelvic floor and causing lasting discomfort for a day or more when stretched. She is satisfied that she now has no c/o lower abdominal achiness and tenderness, and has a HEP of stretches for her abdomen and hips/PF to help maintain her current condition and is receiving continued continuum of care manager for her low back as I believe has involvement with her initial pelvic floor complaints. The pt is being discharged from physical therapy to her self care HEP today. Physical Therapy Plan Discharge Physical Therapy Discharge Reasons Goals Met Discharge Comments Pt reports symptoms are intermittent and is not at this time interested in improving her ability to have intercourse or stretch her pelvic floor; therefore pt is being discharged at her request. Thank you for your referral.
== END 2024-12-30 10:23 | disposition home or self-care (01) ==
LOC: PHYS 09:00
PROVIDERS: Family Provider Family Medicine; PCP Family Medicine; Referring Provider Family Medicine; Visit Provider Family Medicine
DX: N94.818 Other vulvodynia (principal); R20.0 Anesthesia of skin; R20.2 Paresthesia of skin
CPT/HCPCS: 97110; 97162; 97535

== ENCOUNTER → 2025-01-14 13:59 | Outpatient (CLI) | payer BC, SELFPAY ==
[2025-01-14 14:45] LABS: Add Manual Diff / Slide Review NO; Hematocrit 42.9 % (36-46); Hemoglobin 14.6 g/dL (12.0-16.0); Lymphocytes Absolute Auto 900 /uL (1100-4500); Mean Corpuscular HGB Conc 34.0 % (30-36); Mean Corpuscular Hemoglobin 32.8 PG (26-34); Mean Corpuscular Volume 96.5 fL (80-100); Platelet Count 189 X10^3/uL (150-400)
[2025-01-14 15:03] LABS: Alanine Aminotransferase 27 IU/L (<35); Albumin 4.4 g/dL (3.5-5.0); Albumin Globulin Ratio 1.9 (1.0-2.8); Alkaline Phosphatase 81 U/L (38-126); Blood Urea Nitrogen 15 mg/dL (7-17); Calcium 9.1 mg/dL (8.4-10.2); Carbon Dioxide 27 mmol/L (22-32); Chloride 98 mmol/L (98-107); Cholesterol 170 mg/dL (140-199); Estimated Glomerular Filt Rate > 60 mL/min (>60); Globulin 2.3 g/dL (1.7-4.1); Glucose 79 mg/dL (70-99); HDL Cholesterol 90 mg/dL (40-60); HEMOLYSIS < 15 (0-50); Potassium 4.3 mmol/L (3.4-5.1); Sodium 133 mmol/L (137-145); Total Protein 6.7 g/dL (6.3-8.2); Triglycerides 52 mg/dL (35-150)
[2025-01-14 15:20] LABS: Free T3, Triiodothyronine Free 5.02 pg/mL (2.77-5.27); Free T4, Direct Thyroxine 1.66 ng/dL (0.78-2.19); Vitamin D 25 Hydroxy (D3) 114 ng/mL (30.0-100.0)
[2025-01-14 15:33] LABS: Thyroid Stimulating Hormone 1.87 uIU/mL (0.47-4.68)
[2025-01-14 15:37] LABS: Ferritin 62 ng/mL (11-264)
[2025-01-16 00:11] LABS: CRP, High Sensitivity 0.30 mg/L (0.00-3.00)
== END ==
PROVIDERS: Family Provider Family Medicine; PCP Family Medicine; Referring Provider Family Medicine; Visit Provider Family Medicine
DX: Z00.00 Encounter for general adult medical examination without abnormal findings (principal); E03.9 Hypothyroidism, unspecified; E06.3 Autoimmune thyroiditis; Z86.2 Personal history of diseases of the blood and blood-forming organs and certain disorders involving the immune mechanism; Z82.49 Family history of ischemic heart disease and other diseases of the circulatory system; E55.9 Vitamin D deficiency, unspecified
CPT/HCPCS: 36415; 80053; 80061; 82306; 82728; 84439; 84443; 84481; 85025; 86140; 86376

== ENCOUNTER 2025-03-18 14:30 | Outpatient (RCR) | payer BC, SELFPAY ==
--- NOTE | 2025-02-01 18:15 | PT.OPPOC ---
Physical, Occupational & Speech Therapy At [facility] Current Diagnoses Other vulvodynia (02/01/25) Anesthesia of skin (02/01/25) Paresthesia of skin (02/01/25) Visit Care Team Role Provider Type Fay Mccormick DO Attending Provider Physician Family Provider Primary Care Provider Referring Provider Specialty: Medical Address: [address] [place] [address], [address], [place], [address] Email: [email or web address] Plan Of Care PT OP: Pelvic Health Start: 01/31/25 12:23 Freq: Status: Active Protocol: Document 02/01/25 08:57 LRN (Rec: 02/01/25 09:02 LRN Laptop) Out-Patient Physical Therapy Visit Information Visit Information Visit Type Initial Evaluation Visit Note 02/04/25 Pt having pelvic and abdomen ultrasound. Visit Start Time 11:33 Visit Stop Time 12:21 Visit Number 1 Progress Note Due 03/03/25 Evaluation Information Evaluation Date 02/01/25 Precautions Precautions HBP w/natural supplements, osteopenia, hypothyroid disorder controlled by natural med. Current Condition History of Current Condition Onset Date 2021, exacerbation recently and worsening past few days . Current Complaints Tingling pain anterior groin, a little in vagina, little pressure abdomen. History of Current Pt reports having intermittent anterior pelvic groin Condition pain when not getting enough sleep and with anxiety, pain lasts up to 4 days. States diagnosed with vulvodynia. When get a good nights sleep her symptoms of pelvic groin tingling goes away. Initially, after having back massage in 2021 she started to have tingling in the anterior groin and saw a chiropractor with pain eventually going away in 2022 (all symptoms of feet, back, and neck pain went away. She reports new symptoms of pelvic tingling in groin and burning sensation in the vaginal canal. She had an episode of pain after sitting on the floor using a [employer] spinning wheel had tingling and pain the the fee that radiated up the legs, then did a 6 hr non-stop car ride that she was good for 2 days, then went walking on gravel resulting in pain that went away after 1 yr of seeing a chiropractor that specialized in neck care. At that time pt reports she was also on sleep and anxiety medications. She states she is now having trouble with anxiety due to not being able to fall asleep easily, stating she hasn't slept in last few days and is having stomach pain; therefore losing weight. On 02/04/25 she is having a pelvic and abdomen ultrasound due to a lot of pressure in abdomen. Prior Treatments and PT for pelvic rehab for 3-4 visits, did not complete Tests program due to pt feeling so well. Treatment Goals Patient/Caregiver Pt goals: Goals Improve sleep pattern to have only 1 night/week interrupted due to pain with the use of medications. Self care HEP. Personal Factors Other Personal Pt feeling very anxious and noting she has high anxiety Factors That May , wgt loss. Effect Therapy/ Previous physical therapy with pt not completing rehab Recovery program. OP-PT Subjective Patient Comments Patient Comments Seeing an accupuncturist tomorrow. Patient Questionnaires Pelvic Pain and Urgency/Frequency Patient Symptom Scale Pelvic Pain Score 18 OP-PT Pain Assessment Location PF lower abdomen & vagina Pain Location Lower abdomen and vaginal region Details Pain Intensity 7 Scale Used Numeric (0 - 10) Description Burning,Tingling Posture Evaluation Position Standing Evaluation View Posterior Shoulder Posture (R) Elevated Comments Posture Comments Trunk shifted left, Was told by chiro that she needed a shoe lift, rounded shoulders, kyphosis, neck shifted right, R shoulder is high, PSIS deep R and high, ASIS is high R. Palpation Assessment Location Bladder region Palpation Location Area of bladder Palpation Findings Tenderness Palpation Details Edges of bladder. Pain and feeling of pressure. Pt denies discomfort in area of uterus. Lumbar Spine Range of Motion Lumbar Spine Active Degrees Testing Position Standing Flexion 85 Extension 15 Rotation Left 45 Rotation Right 45 Lateral Flexion Left 10 Lateral Flexion 10 Right Hip Goniometric Range of Motion Hip Measured in Degrees Right Passive Testing Position Supine Abduction 20 Internal Rotation 35 External Rotation 55 Left Passive Testing Position Supine Abduction 30 Internal Rotation 30 External Rotation 60 Trunk Strength Trunk Manual Muscle Testing Core Stabilization Good core stability. Hip Strength Hip Manual Muscle Testing Right Internal Rotation 4 Good Comments Strength is 5/5 except as indicated above. Left Internal Rotation 4 Good Comments Strength is 5/5 except as indicated above. Self-Care/Home Management Treatment Education Other Education Discussed results of evaluation, goals, treatment, and plan of care (POC) with pt; pt agreeable to evaluation, goals, treatment and POC. Activities Self-Care/Home I/S pt in HEP that she previously was given during her Management last therapy program: Bilateral Piriformis (ankle over Activities knee>KTC) and abdominal JUSTIN stretch. Pt told to hold Happy Baby stretch and to bring her HEP in to next PT therapy for review. Physical Therapy Assessment Rehab Potential Rehabilitation Good Potential Evaluation Complexity Number of Personal 1-2 Factors/ Comorbidities Number of Body 4 or More Systems Impaired Clinical Evolving Presentation at Evaluation Impairments Impairments Activity Tolerance,Pain,ROM,Soft Tissue Mobility, Strength Goals Three Impairment Decreased function per PUF score of 18 Short Term Goal (STG Reduce PUF score to 13. ) STG Duration 03/01/25 Senior Living Goal (LTG) Reduce PUF score to most recent previous level of 8. LTG Duration 04/01/25 Two Impairment Lack of sleep due to PF/vaginal pain. Short Term Goal (STG Pt will be re-educated in self care pain management ) techniques (MH, cryotherapy, hot/cold, deep breathing, mindfulness) STG Duration 02/22/25 Senior Living Goal (LTG) Decrease pain to improve sleep pattern to have only 1 night/week interrupted due to pain with the use of medications. LTG Duration 04/01/25 One Impairment HEP Short Term Goal (STG Pt will be independent and consistent with self care ) HEP of PF self STM (abdomen) and stretches. STG Duration 02/22/25 Goodwill Representative Goal (LTG) Pt will be independent in a self care HEP of ROM hips ( L>R IR, R>L ER & AB ROM) and core (flex) & strengthening of hip (IR) exercises. LTG Duration 04/01/25 Assessment Summary Assessment Pt is a 64 yo female with c/o intermittent pelvic and vaginal pain that is present when she has lack of sleep or with increased anxiety. Pt refused internal pelvic floor assessment. Externally she appears to have a possible tear at 6 O'Clock at peggy vaginal entry and visually she has tissue protrusion that I was not able to assess, but would be appropriate for further medical assessment. The pt needs to improve her PF tissue health before I would attempt internal assessment. She demonstrates some limited mobility with trunk flexion and hip L>R IR, R>L ER & AB PROM and weakness of hip internal rotators. PUF score of 18 indicates a 76% likelihood of +PST, although with poor tissue health externally, this score may be skewed. The pt will benefit from skilled physical therapy to improve her musculoskeletal imbalances and to be placed on a self care program. Her rehab might have to later be postponed, in order to give her time to improve her PF tissue health. Physical Therapy Plan Frequency and Duration Frequency of 1x/Week Treatment Duration of 9 treatment (weeks) Plan of Care Start 02/01/25 Date Plan of Care End 04/01/25 Date Therapeutic Interventions Therapeutic Aquatic Therapy Interventions Other Referrals/Consults Referrals/Consults Gynocologist for assessment of vaginal tissue health Recommended dryness and fragility external and internal (possible tearing at 6 O'Clock). Assessed by Referring physcian for possible bladder infection? Next Visit Focus/Plan Next Note Type Treatment Note Next Visit Plan Next: Review HEP instructed in today (JUSTIN and Piriformis). Progress her HEP, self care pain management, Manual: abdominal & hips STM. Ther Act: Sleeping posturing. Ther Ex: ROM trunk flexion and hip L>R IR, R>L ER & AB; Strengthening hip internal rotators POC: Pt education , self care management, manual therapy, therapeutic exercises, therapeutic activities, and neuromuscular reeducation (breath work with transfers). Plan of Care Dates Plan of Care Start Date 02/01/25 Plan of Care End Date 04/01/25 Electronically Signed by: Christy Oh, PT 02/01/25 [id number] If you are in agreement with this Plan of Care, please return a signed and dated copy. I have reviewed this Plan of Care and certify that the skilled therapy services above are required to meet the patient?s needs. Physician Signature Date Printed Name and Credentials Clinical Instructor Signature Printed Name and Credentials
--- NOTE | 2025-02-25 16:49 | PT.OTN ---
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 Visit Start Time 13:02 Visit Stop Time 13:46 Visit Number (3 prior visits) + 2/3 Progress Note Due 03/03/25 Evaluation Information Evaluation Date 02/01/25 Precautions Precautions HBP w/natural supplements, osteopenia, hypothyroid disorder controlled by natural med. OP-PT Subjective Patient Comments Patient Comments States her abdominal US is normal and her urine is normal. States she has most pain when can't sleep. Has hypothyroidism and she thinks that her thyroid T3 is on the high side, but she was told the referecne range is normal here, but other places has a more narromw range, indicating her hormones are in the range of hyperthyoidisms vs hypothyroidism. States she spoke to her primary care physician and MD agreed to lower her dosage of medication to see if she feels better in 6 wks. She asked for a sleep medication, but yesterday she was so fatigued that she slept well. She has been prescribed Trazadone. Will see Dr Asif today. States her different therapies has helped her symptoms of abdominal discomfort. Therapeutic Exercises Supine Exercises Happy Baby Pose Reps/Minutes Poor tolerance to long hold stretch with incr'd PF discomfort with stretch. Comments Cued to change hand position to get tolerable stretch ( hold feet>ankles) Piriformis stretch Side bilateral Reps/Minutes 7' Prone Exercises JUSTIN stretch Reps/Minutes 10SH x 10 Therapeutic Activity Therapeutic Activity HR monitoring training Name ........ Reps/Minutes 8' Self-Care/Home Management Treatment Education Other Education Extensive pt leaded discussion of her current status ( extremely tired and pain everywhere, pt believes she has possible hyperthyroid vs hypothyroid, and involvement of other health care providers ( chiropractors, MD's, possible ND, manual therapist). Activities Self-Care/Home Issued & Reviewed General Exercise recommendation for Management how hard to start aerobic exercise, starting moderate Activities and progressively moving towards more vigorous activity . Physical Therapy Assessment Goals Three Impairment Decreased function per PUF score of 18 Short Term Goal (STG Reduce PUF score to 13. ) STG Duration 03/01/25 Shelter Goal (LTG) Reduce PUF score to most recent previous level of 8. LTG Duration 04/01/25 Two Impairment Lack of sleep due to PF/vaginal pain. Short Term Goal (STG Pt will be re-educated in self care pain management ) techniques (MH, cryotherapy, hot/cold, deep breathing, mindfulness) STG Duration 02/22/25 Banquet Waiter/Waitress Goal (LTG) Decrease pain to improve sleep pattern to have only 1 night/week interrupted due to pain with the use of medications. 02/25/25: Issued & Reviewed General Exercise recommendation for how hard to start aerobic exercise, starting moderate and progressively moving towards more vigorous activity. LTG Duration 04/01/25 progressed 02/25/25 One Impairment HEP Short Term Goal (STG Pt will be independent and consistent with self care ) HEP of PF self STM (abdomen) and stretches. STG Duration 02/22/25 Banquet Waiter/Waitress Goal (LTG) Pt will be independent in a self care HEP of ROM hips ( L>R IR, R>L ER & AB ROM) and core (flex) & strengthening of hip (IR) exercises. LTG Duration 04/01/25 Assessment Summary Assessment 64 yo female w/intermittent pelvic and vaginal pain that is worsened w/lack of sleep or with increased anxiety. Pt had refused internal pelvic floor assessment. Possible tear at 6 O'Clock at the vaginal entry and visually she has tissue protrusion that I was not able to assess, but would be appropriate for further medical assessment by referring physician. Poor tolerance to ex, complaining of being too tired after ex's and needed encouragement to continue. Pt has not been doing her HEP as issued, therefore review was needed. She admits to not doing any aerobic exercise that could help to increase blood flow to the PF. Pt is doing multiple therapies at the same time and apparently she is feeling they are helpful. Pt is not wanting to exercise; therefore pt is somewhat resistant to being compliant with home ex's. Physical Therapy Plan Frequency and Duration Frequency of 1x/Week Treatment Duration of 9 treatment (weeks) Plan of Care Start 02/01/25 Date Plan of Care End 04/01/25 Date Other Referrals/Consults Referrals/Consults Gynocologist for assessment of vaginal tissue health Recommended dryness and fragility external and internal (possible tearing at 6 O'Clock). Pt reports being cleared of bladder infection. Next Visit Focus/Plan Next Note Type Treatment Note Next Visit Plan Next: PN & submit for more therapy or DC due to pt has had her 6/6 PT visits/yr (3 prior). Assess PUF score. Educate in self care pain management and self abdominal/?hips STM and stretches (hip L>R IR, R>L ER & AB, & trunk trunk flexion). Strengthening hip internal rotators. Ther Act: Sleeping posturing. POC: Pt education , self care management, manual therapy, therapeutic exercises, therapeutic activities, and neuromuscular reeducation (breath work with transfers).
--- NOTE | 2025-03-17 15:51 | PT-OP ANOTE ---
SKILLED NURSING FACILITIES PROFESSIONAL called pt regarding trying to schedule more appts for women's health. She has been having bouts of hyper vs hypothroidism and adjusting medication with tiredness, had to cancel last appt and her heel seat sander as well not feeling safe driving at that time. She is still having pain in vulva area. Stopped her PT stretches due to causing discomfort, states has been the only HEP taught in PT for a few appts with no success in pain reduction. She has an appt with FELLMONGERING MACHINE OPERATOR next week and will ask further assessment of the external and internal per PT recommendation last tx on 02/25. Pt requested seeing a new pelvic health PT for secondary recommendation how PT can help and willing to see a SKILLED NURSING FACILITIES PROFESSIONAL for tx if beneficial with knowledge under direction of her primary PT.
--- NOTE | 2025-03-18 16:07 | PT.OPPOC ---
Physical, Occupational & Speech Therapy At [facility] Current Diagnoses Other vulvodynia (03/18/25) Anesthesia of skin (03/18/25) Paresthesia of skin (03/18/25) Visit Care Team Role Provider Type Fay Mccormick DO Attending Provider Physician Family Provider Primary Care Provider Referring Provider Specialty: Medical Address: [address] [place] [address], [address], [address] Email: [email or web address] Plan Of Care PT OP: Pelvic Health Start: 01/31/25 12:23 Freq: Status: Active Protocol: Document 03/18/25 14:35 AMH (Rec: 03/18/25 14:44 AMH [id number]) Out-Patient Physical Therapy Visit Information Visit Information Visit Type Treatment Note Visit Start Time 14:35 Visit Stop Time 15:15 Visit Number 6 OP-PT Subjective Patient Comments Patient Comments pt notes her pain is better today Sidra notes in October of 2024 the tingling in her groin area started and then vaginal pain symptoms began. She describes her abdomen feels full with a slight ache and vaginally she feels a achy sensation. She is on a gluten free diet for this past month and she is having more of a normal bowel movement now and feels this is helping. Her anxiety symptoms are also better under control and she is now sleeping. When she lays down her pelvic pain symptoms goes away and she is better able to sleep. Sidra does report her vaginal tissue is red and she is wondering if there could be a infection. She sees Dr. Anny alfonso for a follow up Patient Reported Improving Progress Manual Therapy Treatment Consent Patient gave verbal Yes consent for manual treatment Soft Tissue Mobilization adductor release Mobilization Type Myofascial Release Intensity/Depth Moderate Body Position Supine Comments worked on releasing the adductors bilaterally and right side was more guarded than the left side with increased tension abdominal massage Comments worked on the descending colon, the suprapubic fascia and the area of the diaphragm to release tightness in the abdominal wall and Sidra tolerated this well Self-Care/Home Management Treatment Education Patient Education Home Exercise Program Other Education Time was spent reviewing Sidra's pain symptoms and going over her history as this was my first time assessing her. Physical Therapy Assessment Goals Three Impairment Decreased function per PUF score of 18 Short Term Goal (STG Reduce PUF score to 13. ) STG Duration 03/01/25 Detention Goal (LTG) Reduce PUF score to most recent previous level of 8. LTG Duration 04/01/25 Two Impairment Lack of sleep due to PF/vaginal pain. Short Term Goal (STG Pt will be re-educated in self care pain management ) techniques (MH, cryotherapy, hot/cold, deep breathing, mindfulness) STG Duration 02/22/25 Fur Cleaner Goal (LTG) Decrease pain to improve sleep pattern to have only 1 night/week interrupted due to pain with the use of medications. 02/25/25: Issued & Reviewed General Exercise recommendation for how hard to start aerobic exercise, starting moderate and progressively moving towards more vigorous activity. LTG Duration 04/01/25 progressed 02/25/25 One Impairment HEP Short Term Goal (STG Pt will be independent and consistent with self care ) HEP of PF self STM (abdomen) and stretches. STG Duration 02/22/25 Detention Goal (LTG) Pt will be independent in a self care HEP of ROM hips ( L>R IR, R>L ER & AB ROM) and core (flex) & strengthening of hip (IR) exercises. LTG Duration 04/01/25 Assessment Summary Assessment Sidra has been seen x 6 visits in PT. Today was my first time assessing her as her PT, Rosa Maria is out of the office. She reports today her anxiety is better under control and it has helped her to improve her sleep. She is noticing her pelvic pain has been reduced with sleep. She has not wanted to do any pelvic floor work but today I started abdominal massage and massage over the bladder in the suprapubic fascia. She tolerated this really well. I also started adductor release to help relax the pelvic floor and she is tight and guarded in the adductors. She reports she has redness in her vaginal tissue and would like further assessment as she is concerned about a bacterial infection and would like further work up/pap smear. I feel she would benefit from continued PT especially since she is now sleeping better and anxiety is decreased. Physical Therapy Plan Frequency and Duration Frequency of 1x/Week Treatment Duration of 8 treatment (weeks) Plan of Care Start 03/18/25 Date Plan of Care End 05/13/25 Date Next Visit Focus/Plan Next Note Type Treatment Note Next Visit Plan Continue with manual therapy techniques as Sidra did well with abdominal massage and releasing the adductors to help reduce pelvic floor tone Plan of Care Dates Plan of Care Start Date 03/18/25 Plan of Care End Date 05/13/25 Electronically Signed by: Jammie Eason, PT 03/18/25 [id number] If you are in agreement with this Plan of Care, please return a signed and dated copy. I have reviewed this Plan of Care and certify that the skilled therapy services above are required to meet the patient?s needs. Physician Signature Date Printed Name and Credentials Clinical Instructor Signature Printed Name and Credentials
--- NOTE | 2025-05-06 08:14 | PT.OPDS ---
Current Diagnoses Other vulvodynia (03/18/25) Anesthesia of skin (03/18/25) Paresthesia of skin (03/18/25) Visit Care Team Role Provider Type Fay Mccormick DO Attending Provider Physician Family Provider Primary Care Provider Referring Provider Specialty: Medical Address: [address] [place] [address], [address], [place], [address] Email: [email or web address] Visit Number Visit Number 6 Discharge Summary PT OP: Pelvic Health Start: 01/31/25 12:23 Freq: Status: Active Protocol: Document 05/06/25 08:10 AMH (Rec: 05/06/25 08:13 AMH [id number]) Physical Therapy Assessment Goals Three Impairment Decreased function per PUF score of 18 Short Term Goal (STG Reduce PUF score to 13. ) STG Duration 03/01/25 Intermediate Goal (LTG) Reduce PUF score to most recent previous level of 8. LTG Duration 04/01/25 Two Impairment Lack of sleep due to PF/vaginal pain. Short Term Goal (STG Pt will be re-educated in self care pain management ) techniques (MH, cryotherapy, hot/cold, deep breathing, mindfulness) STG Duration 02/22/25 Warning Coordination Meteorologist Goal (LTG) Decrease pain to improve sleep pattern to have only 1 night/week interrupted due to pain with the use of medications. 02/25/25: Issued & Reviewed General Exercise recommendation for how hard to start aerobic exercise, starting moderate and progressively moving towards more vigorous activity. LTG Duration 04/01/25 progressed 02/25/25 One Impairment HEP Short Term Goal (STG Pt will be independent and consistent with self care ) HEP of PF self STM (abdomen) and stretches. STG Duration 02/22/25 Warning Coordination Meteorologist Goal (LTG) Pt will be independent in a self care HEP of ROM hips ( L>R IR, R>L ER & AB ROM) and core (flex) & strengthening of hip (IR) exercises. LTG Duration 04/01/25 Assessment Summary Assessment Sidra called to let us know she is ready to DC from PT at this time to a I HEP. Physical Therapy Plan Discharge Physical Therapy Discharge Reasons Patient Request Discharge Comments pt requested DC to HEP at this time
== END 2025-05-06 13:18 | disposition home or self-care (01) ==
LOC: PHYS 14:30
PROVIDERS: Family Provider Family Medicine; PCP Family Medicine; Referring Provider Family Medicine; Visit Provider Family Medicine
DX: N94.818 Other vulvodynia (principal); R20.0 Anesthesia of skin; R20.2 Paresthesia of skin
CPT/HCPCS: 97110; 97140; 97162; 97530; 97535

== ENCOUNTER 2025-04-02 11:17 | Day surgery (SDC) | payer BC, SELFPAY ==
--- NOTE | 2025-04-02 | PATH_ITS ---
[facility] Accession Number: [id number] No. of containers..01 Tissue . 01 Material submitted: . colon - COLON,TRANSVERSE POLYP . 01 Diagnosis: A: TRANSVERSE COLON, POLYPECTOMY: Colonic mucosa with no significant diagnostic abnormality, consistent with polypoid redundancy. Negative for dysplasia, or malignancy. Additional deeper levels were examined. [facility] 04/14/2025 1211 Local . 01 Electronically signed: . Linda Hatfield MD, Pathologist NPI- [id number] . 01 Gross description: . Received in formalin with two identifiers and transverse colon polyp is a single cross soft tissue fragment measuring 0.7 cm in greatest dimension, entirely submitted in A1. (AER:[id number]) /MRV 04/07/2025 1353 Local . 01 Pathologist provided ICD-10: Z12.11 . 01 CPT . 994334 Specimen Comment: A courtesy copy of this report has been sent to [phone] Performed at: [address] [address], [place], [place] [id number] MD Tad Goyal MD Phone: [phone]
[2025-04-02 11:42] VITALS: BP 135/78; PULSE 80; RESP 16; TEMP 36.1; O2SAT 98
[2025-04-02] MEDS: LACTATED RINGERS 1,000 ML 42 ML IV (11:49)
--- NOTE | 2025-04-02 12:09 | PM.HP.IH.1 ---
History of Present Illness History of Present Illness Date Patient Seen: 04/02/25 Time Patient Seen: 12:09 Chief complaint: Screening Colonoscopy Narrative: Sidra is a 64-year-old woman here for a colonoscopy. She had a colonoscopy in 2019 that was normal. She thinks she has had polyps removed on a prior colonoscopy. No family history of colon cancer in a first-degree relative. [facility] Medical History (Updated 04/02/25 @ 12:10 by Abdirahman Haro MD) LLQ abdominal pain Unsatisfactory cervical cytology smear Foot callus Osteopenia after menopause Rosacea (~2018) Elevated BP without diagnosis of hypertension Family history of heart disease History of anemia Juan Manuel's disease (~2018) Surgical History Anesthesia History of breast surgery (~2007) Family History Father History of heart attack Social History Smoking Status: Never smoker alcohol intake: never Meds Home Medications and Allergies Home Medications ?Medication ?Instructions ?Recorded ?Confirmed ?Type Lactobacillus 40-Bifidobact 1 cap PO DAILY 08/31/21 04/02/25 History 3-S.thermophilus 100 billion cell capsule (Probiotic) magnesium malate + glycinate + PO 10/19/22 03/23/25 History citrate cholecalciferol (vitamin D3) 125 125 mcg PO DAILY 01/07/23 04/02/25 History mcg (5,000 unit) tablet (Vitamin D3) ferrous sulfate 250 mg (50 mg 250 mg PO DAILY 01/07/23 04/02/25 History iron) tablet,extended release selenium 200 mcg tablet 200 mcg PO DAILY 01/07/23 03/23/25 History turmeric 100 mg-otis 150 cap PO 01/07/23 03/23/25 History mg-olive 50 mg-oreg 150 mg-capryl capsule ubidecarenone-omega 3-vit E 25 1 cap PO DAILY 01/07/23 03/23/25 History mg-150 (90-60) mg-200 unit capsule (Co U-76-Vzumzau E-Fish Oil) Amino acid body health PO 01/19/25 03/23/25 History Low dose Naltrexone (LDN) 2 mg PO DAILY #90 caps 02/15/25 04/02/25 Rx progesterone micronized 100 mg 100 mg PO BEDTIME PRN anxiety and 02/17/25 03/23/25 Rx capsule sleep difficulties #90 caps Held on 03/23/25. Instructions: try 200mg progesterone micronized 200 mg 200 mg PO BEDTIME #90 caps 02/17/25 03/23/25 Rx capsule sodium,potassium,mag sulfates 17.5 See Rx Instructions PO .COMPLEX 03/01/25 03/23/25 Rx gram-3.13 gram-1.6 gram oral soln #354 mL (Suprep Bowel Prep Kit) trazodone 50 mg tablet 50 mg PO DAILY #30 tabs 03/04/25 04/02/25 Rx Fish Oil PO 03/23/25 03/23/25 History Zinc PO 03/23/25 03/23/25 History duloxetine 30 mg capsule,delayed 30 mg PO DAILY #90 caps 03/23/25 04/02/25 Rx release thyroid (pork) 15 mg tablet (CUSHION BUILDER 15 mg PO DAILY #45 tabs 03/23/25 04/02/25 Rx Thyroid) thyroid (pork) 30 mg tablet (CUSHION BUILDER 30 mg PO .COMPLEX #90 tabs 03/23/25 04/02/25 Rx Thyroid) Allergies Allergy/AdvReac Type Severity Reaction Status Date / Time gabapentin AdvReac Intermediate Anxiety Verified 04/02/25 11:37 and flushing losartan AdvReac Intermediate numbness Verified 04/02/25 11:37 and tingling of entire body metoprolol AdvReac Intermediate feet turn Verified 04/02/25 11:37 white and feel hot valacyclovir AdvReac Intermediate macrocytosi Verified 04/02/25 11:37 s Exam Vital Signs (past 8 hours): - 04/02/25 11:42 Temperature 97 F L Pulse Rate 80 Respiratory Rate 16 Blood Pressure 135/78 Pulse Oximetry 98 Oxygen Delivery Method Room Air Oxygen Delivery Method Room Air Const General: healthy appearing Assessment & Plan Assessment and plan (1) History of colon polyps: Status: Acute Plan Colonoscopy for history of polyps Time-Based Coding :: [TOTAL MINUTES] spent with patient and on the chart (including review of chart, obtaining history, exam, reviewing outside data, placing orders, documenting exam and treatment plan, and counseling patient) on [DATE]. PROFEE Newscast Producer Document charge(s): No
[2025-04-02 12:39] VITALS: BP 130/67; PULSE 62; RESP 18; TEMP 36.7; O2SAT 99
--- NOTE | 2025-04-02 12:40 | P.OP.COLON_ITS ---
Operative Date/Time/Diagnoses Date of procedure: 04/02/25 Time of procedure: 12:40 Pre-op diagnosis: History of polyps Post-op diagnosis: same Procedure & Clinicians Study performed: Colonoscopy Same procedure(s) as scheduled: Yes Surgeon: Abdirahman Haro Anesthesia Type: MAC +/- Procedure Notes Procedure in detail: Surgeon: Abdirahman Haro MD Anesthesia: Steffi Mary CHAIN SAW DRIVER Procedure: The patient was brought to the endoscopy suite, placed in left lateral decubitus position. The patient was connected to monitoring devices. A time-out was performed. Sedation was administered. Once the patient was adequately sedated, a digital rectal exam was performed and was normal. The scope was then inserted and advanced to the cecum where the appendiceal orifice was identified and photographed. The scope was then slowly withdrawn over greater than 6 minutes. The mucosa was thoroughly inspected. There was a 7 mm sessile polyp in the transverse colon removed with a cold snare. The scope was retroflexed in the rectum. No other abnormalities were found. The scope was straightened and removed. The patient was awakened and brought to recovery. Scope withdrawal time: 9 minutes Sedation time: 15 minutes EBL: 5 mL Findings: 7 mm sessile polyp transverse colon Post-procedure Disposition: PACU
[2025-04-02 12:44] VITALS: BP 127/65; PULSE 80; RESP 23; O2SAT 98
== END 2025-04-02 12:55 | disposition home or self-care (01) ==
PROVIDERS: PCP Family Medicine; Referring Provider Family Medicine; Visit Provider Surgery
PROC: 0DJD8ZZ Inspection of Lower Intestinal Tract, Via Natural or Artificial Opening Endoscopic (ICD-10-PCS; CPT 45378; principal; 2025-04-02 13:00)
DX: Z12.11 Encounter for screening for malignant neoplasm of colon (principal); Z86.0100 Personal history of colon polyps, unspecified; K63.5 Polyp of colon
CPT/HCPCS: 45385; J2704; J7120

== ENCOUNTER → 2025-04-07 15:49 | Outpatient (CLI) | payer BC, SELFPAY ==
[2025-04-07 18:03] LABS: Free T3, Triiodothyronine Free 4.17 pg/mL (2.77-5.27)
[2025-04-07 18:17] LABS: TSH w/ Reflex to FT4 2.52 uIU/mL (0.47-4.68)
[2025-04-07 20:02] LABS: Free T4, Direct Thyroxine 1.34 ng/dL (0.78-2.19)
== END ==
PROVIDERS: PCP Family Medicine; Referring Provider Family Medicine; Visit Provider Family Medicine
DX: E06.3 Autoimmune thyroiditis (principal)
CPT/HCPCS: 36415; 84439; 84443; 84481; 86376